=== PATIENT | female | born 1970 | race Caucasian/White ===

== ENCOUNTER 2017-06-17 10:39 | Inpatient (IN) | payer BC ==
[2017-06-17] MEDS ORDERED: ONDANSETRON HCL INJ/PF 4 MG/2 ML SDV IV ONE (11:03)
[2017-06-17] MEDS ORDERED: NORMAL SALINE 1000 ML 1,000 ML IV ONE (11:03)
[2017-06-17] MEDS ORDERED: HYDROMORPHONE HCL INJ/PF 2 MG/ML AMPULE IV ONE ×3 (11:03→13:58)
--- NOTE | 2017-06-17 11:04 | ER Document Report ---
ED Medical Screen (RME) - General Chief Complaint: Lower Abdominal Pain Stated Complaint: STOMACH PAIN Time Seen by Provider: 06/17/17 11:02 Notes: severe llq abd pain that started yesterday. has had complete hyster TRAVEL OUTSIDE OF THE [place] IN LAST 30 DAYS: No - Related Data Allergies/Adverse Reactions: No Known Allergies Allergy (Verified 06/17/17 11:00) Past Medical History - Social History Frequency of alcohol use: Occasional Drug Abuse: None - Past Medical History Cardiac Medical History: Reports: Hx Hypertension Pulmonary Medical History: Denies: Hx Tuberculosis Renal/ Medical History: Reports: Hx Ovarian Cysts. Denies: Hx Peritoneal Dialysis GI Medical History: Reports: Hx Diverticulitis Past Surgical History: Reports: Hx Hysterectomy, Hx Tonsillectomy. Denies: Hx Pacemaker Physical Exam - Vital signs Vitals: Temp Pulse Resp BP Pulse Ox 98.7 F 95 20 123/75 100 06/17/17 10:42 06/17/17 10:42 06/17/17 10:42 06/17/17 10:42 06/17/17 10:42 Course - Vital Signs Vital signs: Temp Pulse Resp BP Pulse Ox 98.7 F 95 20 123/75 100 06/17/17 10:42 06/17/17 10:42 06/17/17 10:42 06/17/17 10:42 06/17/17 10:42
[2017-06-17 11:26] LABS: ABSOLUTE BASOPHILS # (AUTO) 0.2 10^3/uL (0.0-0.2); ABSOLUTE LYMPHOCYTES (AUTO) 1.1 10^3/uL (0.5-4.7); ABSOLUTE NEUT (AUTO) 17.5 10^3/uL (1.7-8.2); EOSINOPHILS % (AUTO) 0.2 % (0-6); HEMATOCRIT 45.4 % (36.0-47.0); HEMOGLOBIN 15.2 g/dL (12.0-15.5); LYMPHOCYTES % (AUTO) 5.7 % (13-45); MEAN CORPUSCULAR HEMOGLOBIN 30.4 pg (27.0-33.4); MEAN CORPUSCULAR HGB CONC 33.4 g/dL (32.0-36.0); MEAN CORPUSCULAR VOLUME 91 fl (80-97); MONOCYTES % (AUTO) 4.8 % (3-13); PLATELET COUNT 293 10^3/uL (150-450); RED BLOOD COUNT 4.99 10^6/uL (3.72-5.28); SEGMENTED NEUTROPHILS % (AUTO) 88.3 % (42-78); TOTAL CELLS COUNTED % (AUTO) 100 %; WHITE BLOOD COUNT 19.9 10^3/uL (4.0-10.5)
[2017-06-17 11:42] LABS: APPEARANCE,URINE CLEAR; BILIRUBIN,URINE NEGATIVE (NEGATIVE); COLOR,URINE YELLOW; GLUCOSE, URINE NEGATIVE (NEGATIVE); KETONES,URINE NEGATIVE (NEGATIVE); LEUKOCYTE ESTERASE,URINE NEGATIVE (NEGATIVE); NITRITE,URINE NEGATIVE (NEGATIVE); PROTEIN,URINE NEGATIVE (NEGATIVE); URINE SPECIFIC GRAVITY 1.024; UROBILINOGEN,URINE NEGATIVE mg/dL (<2.0)
[2017-06-17 11:49] LABS: ALANINE AMINOTRANSFERASE 29 U/L (9-52); ALBUMIN 4.8 g/dL (3.5-5.0); ALKALINE PHOSPHATASE 55 U/L (38-126); ASPARTATE AMINO TRANSFERASE 17 U/L (14-36); BILIRUBIN,DIRECT 0.4 mg/dL (0.0-0.4); BILIRUBIN,TOTAL 1.2 mg/dL (0.2-1.3); BLOOD UREA NITROGEN 22 mg/dL (7-20); CALCIUM 9.8 mg/dL (8.4-10.2); GLUCOSE 92 mg/dL (75-110); POTASSIUM 3.3 mmol/L (3.6-5.0); TOTAL PROTEIN 8.2 g/dL (6.3-8.2)
--- NOTE | 2017-06-17 11:55 | ER Document Report ---
ED GI/ - General Chief Complaint: Lower Abdominal Pain Stated Complaint: STOMACH PAIN Time Seen by Provider: 06/17/17 11:02 Notes: Patient says that she is having severe lower abdominal pain this morning. She says that this began last night in the left upper quadrant, but this morning, it is going across her abdomen, although it staying primarily on the left abdomen and suprapubic region. She says that when driving her car this morning , it was severe and worse with attempting to breathe. She was nauseated but has not vomited. Had 2 diarrhea stools yesterday. No blood present. Has not had a fever. Patient has a history of endometriosis and had a hysterectomy for that condition. She has had 2 colonoscopies performed by 2 different retread technician and i been told by one retread technician that she has diverticulitis and by another retread technician that she does not have diverticulitis. She also has a history of a kidney infection and has seen a urologist and has discussed the finding of cysts and questionable stones. TRAVEL OUTSIDE OF THE [place] IN LAST 30 DAYS: No - Related Data Allergies/Adverse Reactions: No Known Allergies Allergy (Verified 06/17/17 11:00) Past Medical History - Social History Smoking Status: Never Smoker Frequency of alcohol use: Occasional Drug Abuse: None Family History: Reviewed & Not Pertinent Patient has suicidal ideation: No Patient has homicidal ideation: No - Past Medical History Cardiac Medical History: Reports: Hx Hypertension Renal/ Medical History: Reports: Hx Ovarian Cysts, Other - Endometriosis resulting in hysterectomy. GI Medical History: Reports: Hx Diverticulitis - See HPI. Psychiatric Medical History: Reports: Hx Anxiety Past Surgical History: Reports: Hx Hysterectomy, Hx Tonsillectomy Review of Systems - Review of Systems Notes: REVIEW OF SYSTEMS: CONSTITUTIONAL : Denies fever. EENT: Denies eye, ear, nose or mouth or throat pain or other symptoms. CARDIOVASCULAR: Denies chest pain. RESPIRATORY: Denies cough, chest congestion, or shortness of breath. GASTROINTESTINAL: See HPI. GENITOURINARY: Denies difficulty or painful urinating, urinary frequency, blood in urine. MUSCULOSKELETAL: Denies back or neck pain. Denies joint pain or swelling. SKIN: Denies rash or skin lesions. NEUROLOGICAL: Denies LOC or altered mental status. Denies headache. Denies sensory loss or motor deficits. ALL OTHER SYSTEMS REVIEWED AND NEGATIVE. Physical Exam - Vital signs Vitals: Temp Pulse Resp BP Pulse Ox 98.7 F 95 20 123/75 100 06/17/17 10:42 06/17/17 10:42 06/17/17 10:42 06/17/17 10:42 06/17/17 10:42 Interpretation: Normal - Notes Notes: PHYSICAL EXAMINATION: GENERAL: Well-appearing, in no acute distress. HEAD: Atraumatic, normocephalic. EYES: Pupils equal round and reactive to light, extraocular movements intact. ENT: oropharynx clear without exudates. Moist mucous membranes. NECK: Normal range of motion, supple. LUNGS: Breath sounds clear and equal bilaterally. HEART: Regular rate and rhythm without murmurs. ABDOMEN: Tender to palpation in the left upper quadrant and down the left side of her abdomen. Little tenderness to the right side of the abdomen, in particular at McBurney's point. Some mild guarding to palpation of the left abdomen. No rebound tenderness. No masses felt. No bruits heard. BACK: No tenderness throughout entire back. Mild left posterior flank pain to palpation and percussion. EXTREMITIES: Normal range of motion without pain. NEUROLOGICAL: Normal speech, normal gait. Normal sensory, motor, and reflex exams. Awake, alert, and oriented x3. Cranial nerves normal. PSYCH: Normal mood, normal affect. SKIN: Warm, dry, no rashes. Course - Re-evaluation Re-evalutation: 06/17/17 12:47 Patient's white count was 19,000. I have ordered a CT scan with oral and IV contrast. I have also ordered a gram of Rocephin IV to get antibiotics started on her without having to wait until she is done having her CT scan. She is drinking the contrast material. Patient has had some Zofran for nausea and I have given her another milligram of Dilaudid IV after she got 1/2 mg IV out front. She says her pain is much better now. 06/17/17 17:11 After seeing the patient's CT results, I called the surgeon cooler conveyor loader who examined the patient. He does not plan on doing surgery at this time. Asked that I contact the medicine service to admit the patient. That was accomplished. Patient has received a gram of Rocephin and 500 mg of Flagyl IV. - Vital Signs Vital signs: Temp Pulse Resp BP Pulse Ox 99.1 F 89 16 118/72 100 06/17/17 17:05 06/17/17 17:05 06/17/17 17:05 06/17/17 17:05 06/17/17 17:05 - Laboratory Result Diagrams: 06/17/17 11:13 06/17/17 11:13 Laboratory results interpreted by me: 06/17/17 06/17/17 11:13 11:13 WBC 19.9 H Seg Neutrophils % 88.3 H Lymphocytes % 5.7 L Absolute Neutrophils 17.5 H Potassium 3.3 L Anion Gap 21 H BUN 22 H Est GFR (Non-Af Amer) 59 L - Diagnostic Test Radiology reviewed: Image reviewed, Reports reviewed - CT scan shows sigmoid diverticulitis with small microperforations, no abscess. Discharge - Discharge Clinical Impression: Sigmoid diverticulitis, Perforation of sigmoid colon due to diverticulitis Condition: Stable Disposition: ADMITTED INPATIENT Admitting Provider: Hospitalist Unit Admitted: Medical Floor Referrals: ZACHERY MELVIN MD [Primary Care Provider] - Follow up as needed
[2017-06-17 11:59] LABS: CARBON DIOXIDE 23 mmol/L (22-30); CHLORIDE 99 mmol/L (98-107); SODIUM 142.6 mmol/L (137-145)
[2017-06-17 12:02] LABS: ANION GAP 21 (5-19)
[2017-06-17] MEDS ORDERED: CEFTRIAXONE INJ 1000 MG VIAL IV ONE (12:13)
--- NOTE | 2017-06-17 14:58 | RADIOLOGY REPORT (SQ) ---
EXAM DESCRIPTION: CT ABD/PELVIS WITH IV ORAL COMPLETED DATE/TIME: 06/17/2017 2:42 pm REASON FOR STUDY: Left abdom pain, WBC 19,000, Hx? Divertic COMPARISON: 05/13/2012 TECHNIQUE: CT scan of the abdomen and pelvis performed using helical scanning technique with dynamic intravenous contrast injection. No oral contrast. Images reviewed with lung, soft tissue, and bone windows. Reconstructed coronal and sagittal MPR images reviewed. Delayed images for evaluation of the urinary system also acquired. All images stored on PACS. All CT scanners at this facility use dose modulation, iterative reconstruction, and/or weight based d osing when appropriate to reduce radiation dose to as low as reasonably achievable (ALARA). [facility]: Dose Right [facility]: CareDose [facility]: Dose Right [facility]: Teradose 4D [facility]: Cute Attack CONTRAST TYPE AND DOSE: contrast/concentration: Isovue 370.00 mg/ml; Total Contrast Delivered: 64.0 ml; Total Saline Delivered: 65.0 ml RENAL FUNCTION: Creatinine 1 RADIATION DOSE: CT Rad equipment meets quality standard of care and radiation dose reduction techniq ues were employed. CTDIvol: 5.0 - 5.7 mGy. DLP: 543 mGy-cm.. LIMITATIONS: None. FINDINGS: LOWER CHEST: No significant findings. Minimal atelectasis or scarring. No nodules or inf iltrates. LIVER: Normal size. No masses. No dilated ducts. SPLEEN: Normal size. No focal lesions. PANCREAS: No masses. No significant calcifications. No adjacent inflammation or peripancreatic fluid collections. Pancreatic duct not dilated. GALLBLADDER: No identified stones by CT criteria. No inflammatory changes to suggest cholecystitis. ADRENAL GLANDS: No significant masses or asymmetry. RIGHT KIDNEY AND URETER: No solid masses. No significant calcifications. No hydronephrosis or hyd roureter. LEFT KIDNEY AND URETER: No solid masses. No significant calcifications. No hydronephrosis or hydr oureter. AORTA AND VESSELS: No aneurysm. No dissection. Renal arteries, SMA, celiac without stenosis. RETROPERITONEUM: No retroperitoneal adenopathy, hemorrhage or masses. BOWEL AND PERITONEAL CAVITY: Colonic diverticulum most prominently involving the sigmoid colon. In t he sigmoid colon there is a thick walled diverticulum with surrounding inflammatory change and bowel wall thickening consistent with diverticulitis. There is no evidence of abscess. There are small lo cules of free air seen superiorly consistent with perforation of a diverticulum. APPENDIX: Normal. PELVIS: No mass. No free fluid. Normal bladder. ABDOMINAL WALL: No masses. No hernias. BONES: No significant or acute findings. OTHER: No other significant finding. IMPRESSION: 1. Sigmoid diverticulitis. No abscess. Small amount of free air consistent with perfo ration. TECHNICAL DOCUMENTATION: JOB ID: [id number] Quality ID # [id number]: Final reports with documentation of one or more dose reduction techniques (e.g., Au tomated exposure control, adjustment of the mA and/or kV according to patient size, use of iterative reconstruction technique) 2010 [employer]- All Rights Reserved Reading location - IP/workstation name: [email or web address]
[2017-06-17] MEDS ORDERED: METRONIDAZOLE 500 MG/NS RTU 100 ML IV ONE (15:30)
[2017-06-17] MEDS ORDERED: ACETAMINOPHEN 325 MG TABLET PO PRN (17:20)
--- NOTE | 2017-06-17 17:40 | PDOC CONSULTATION ---
Consultation Consult Date: 06/17/17 Consult reason:: Sigmoid diverticulitis with localized perforation History of Present Illness Admission Date/PCP: 06/17/17 17:23 ZACHERY MELVIN MD Patient complains of: Abdominal pains History of Present Illness: RONNIE MOELLER is a 47 year old female who c/o LLQ abdominal pains around 7: 30 last night associated with 2 episodes of diarrhea. Woke up this morning with more severe LLQ and suprapubic pains with nausea. Patient then went to ED where a CT scan of abd/pelvis was done. This sowed a localized sigmoid diverticular perforation. Denies fever nor chills. Past Medical History Cardiac Medical History: Reports: Hypertension Pulmonary Medical History: Denies: Tuberculosis Renal/ Medical History: Reports: Other - Endometriosis resulting in hysterectomy. GI Medical History: Reports: Diverticulitis - See HPI. Past Surgical History Past Surgical History: Reports: Hysterectomy, Tonsillectomy Denies: Pacemaker Social History Smoking Status: Never Smoker Hx Recreational Drug Use: No Hx Prescription Drug Abuse: No Family History Family History: Reviewed & Not Pertinent Parental Family History Reviewed: Yes - Hypertension Children Family History Reviewed: No Sibling(s) Family History Reviewed.: No Medication/Allergy Home Medications: Hyoscyamine Sulfate [Symax-Sl] 0.125 mg SL ASDIR PRN 05/13/12 Ciprofloxacin HCl [Cipro 500 mg Tablet] 500 mg PO BID #20 tablet 05/14/12 Metronidazole [Flagyl 250 Mg Tablet] 250 mg PO QID #0 tablet 05/14/12 Promethazine HCl [Phenergan 25 mg Tablet] 25 mg PO Q4HP PRN #0 tablet 05/14/12 Allergies/Adverse Reactions: No Known Allergies Allergy (Verified 06/17/17 11:00) Review of Systems Constitutional: PRESENT: anorexia Eyes: PRESENT: other - no visual/hearing problems Cardiovascular: PRESENT: other - no chest pains Respiratory: PRESENT: other - no dyspnea Gastrointestinal: PRESENT: diarrhea Genitourinary: PRESENT: other - no dysuria Musculoskeletal: PRESENT: other - no joint pains/skin lesions Neurological: PRESENT: other - no seizures Endocrine: PRESENT: other - no polyuria or easy bruisability Physical Exam Vital Signs: Temp Pulse Resp BP Pulse Ox 99.1 F 89 16 118/72 100 06/17/17 17:05 06/17/17 17:05 06/17/17 17:05 06/17/17 17:05 06/17/17 17:05 General appearance: PRESENT: mild distress Head exam: PRESENT: atraumatic, normocephalic Eye exam: PRESENT: conjunctiva pink Mouth exam: PRESENT: moist Neck exam: PRESENT: full ROM Respiratory exam: PRESENT: clear to auscultation cherelle Cardiovascular exam: PRESENT: RRR Pulses: PRESENT: normal radial pulses GI/Abdominal exam: PRESENT: soft, tenderness - LLQ and suprapubic area Rectal exam: PRESENT: deferred Extremities exam: PRESENT: full ROM Musculoskeletal exam: PRESENT: ambulatory Neurological exam: PRESENT: alert, oriented to person, oriented to place, oriented to time, oriented to situation Psychiatric exam: PRESENT: appropriate affect Skin exam: PRESENT: normal color, warm Results Impressions: Abdomen/Pelvis CT 06/17/17 00:00 IMPRESSION: 1. Sigmoid diverticulitis. No abscess. Small amount of free air consistent with perforation. Assessment & Plan - Diagnosis (1) Perforation of sigmoid colon due to diverticulitis Is this a current diagnosis for this admission?: Yes - Time Time Spent: 30 to 50 Minutes - Inpatient Certification Medical Necessity: Need For IV Fluids, Need for Pain Control, Need for IV Antibiotics, Risk of Complication if Not Cared For in Hospital - Plan Summary Plan Summary: Keep NPO IV antibiotics Hydrate Pain mx Will monitor closely
[2017-06-17] MEDS: OXYCODONE-ACETAMINOPHEN 5-325 MG TABLET PO PRN (18:24)
--- NOTE | 2017-06-17 18:32 | PDOC H&P ---
History of Present Illness Admission Date/PCP: 06/17/17 17:23 ZACHERY MELVIN MD Patient complains of: Abdominal Pain History of Present Illness: RONNIE MOELLER is a 47 year old female Past Medical History Cardiac Medical History: Reports: Hypertension Pulmonary Medical History: Denies: Tuberculosis Endocrine Medical History: Reports: None Renal/ Medical History: Reports: Other - Endometriosis resulting in hysterectomy. GI Medical History: Reports: Diverticulitis - See HPI. Skin Medical History: Reports: None Psychiatric Medical History: Reports: None Hematology: Reports: None Infectious Medical History: Reports: None Past Surgical History Past Surgical History: Reports: Hysterectomy, Tonsillectomy Denies: Pacemaker Social History Information Source: Patient Smoking Status: Never Smoker Frequency of Alcohol Use: None Hx Recreational Drug Use: No Drugs: None Hx Prescription Drug Abuse: No Family History Family History: Reviewed & Not Pertinent Parental Family History Reviewed: Yes Children Family History Reviewed: Unknown Sibling(s) Family History Reviewed.: Unknown Medication/Allergy Home Medications: Hyoscyamine Sulfate [Symax-Sl] 0.125 mg SL ASDIR PRN 05/13/12 Ciprofloxacin HCl [Cipro 500 mg Tablet] 500 mg PO BID #20 tablet 05/14/12 Metronidazole [Flagyl 250 Mg Tablet] 250 mg PO QID #0 tablet 05/14/12 Promethazine HCl [Phenergan 25 mg Tablet] 25 mg PO Q4HP PRN #0 tablet 05/14/12 Allergies/Adverse Reactions: No Known Allergies Allergy (Verified 06/17/17 11:00) Review of Systems Constitutional: PRESENT: as per HPI Eyes: PRESENT: as per HPI Cardiovascular: ABSENT: chest pain, dyspnea on exertion, edema, orthropnea Respiratory: ABSENT: cough, hemoptysis Gastrointestinal: PRESENT: abdominal pain, nausea, other Genitourinary: ABSENT: dysuria, hematuria Musculoskeletal: PRESENT: as per HPI Integumentary: ABSENT: rash, wounds Neurological: ABSENT: abnormal gait, abnormal speech, confusion, dizziness, focal weakness, syncope Psychiatric: ABSENT: anxiety, depression, homidical ideation, suicidal ideation Endocrine: ABSENT: cold intolerance, heat intolerance, polydipsia, polyuria Physical Exam Vital Signs: Temp Pulse Resp BP Pulse Ox 99.1 F 89 16 118/72 100 06/17/17 17:05 06/17/17 17:05 06/17/17 17:05 06/17/17 17:05 06/17/17 17:05 General appearance: PRESENT: no acute distress Head exam: PRESENT: atraumatic Eye exam: PRESENT: conjunctiva pink, EOMI, PERRLA. ABSENT: scleral icterus Ear exam: PRESENT: normal external ear exam Mouth exam: PRESENT: dry mucosa, moist, tongue midline Neck exam: ABSENT: carotid bruit, JVD, lymphadenopathy, thyromegaly Respiratory exam: PRESENT: clear to auscultation cherelle. ABSENT: rales, rhonchi, wheezes Cardiovascular exam: PRESENT: RRR. ABSENT: diastolic murmur, rubs, systolic murmur Pulses: PRESENT: normal dorsalis pedis pul GI/Abdominal exam: PRESENT: diminished bowel sounds, tenderness Rectal exam: PRESENT: deferred Extremities exam: PRESENT: full ROM. ABSENT: calf tenderness, clubbing, pedal edema Musculoskeletal exam: PRESENT: ambulatory Neurological exam: PRESENT: alert, awake, oriented to person, oriented to place , oriented to time, oriented to situation Psychiatric exam: PRESENT: appropriate affect, normal mood. ABSENT: homicidal ideation, suicidal ideation Skin exam: PRESENT: dry, intact, warm. ABSENT: cyanosis, rash Results Laboratory Results: Laboratory 06/17/17 06/17/17 06/17/17 11:10 11:13 11:13 WBC 19.9 H RBC 4.99 Hgb 15.2 Hct 45.4 MCV 91 MCH 30.4 MCHC 33.4 RDW 14.0 Plt Count 293 Seg Neutrophils % 88.3 H Lymphocytes % 5.7 L Monocytes % 4.8 Eosinophils % 0.2 Basophils % 1.0 Absolute Neutrophils 17.5 H Absolute Lymphocytes 1.1 Absolute Monocytes 1.0 Absolute Eosinophils 0.0 Absolute Basophils 0.2 Sodium 142.6 Potassium 3.3 L Chloride 99 Carbon Dioxide 23 Anion Gap 21 H BUN 22 H Creatinine 1.00 Est GFR ( Amer) > 60 Est GFR (Non-Af Amer) 59 L Glucose 92 Calcium 9.8 Total Bilirubin 1.2 Direct Bilirubin 0.4 Neonat Total Bilirubin Not Reportable Neonat Direct Bilirubin Not Reportable Neonat Indirect Bili Not Reportable AST 17 ALT 29 Alkaline Phosphatase 55 Total Protein 8.2 Albumin 4.8 Lipase Urine Color YELLOW Urine Appearance CLEAR Urine pH 5.0 Ur Specific [place] 1.024 Urine Protein NEGATIVE Urine Glucose (UA) NEGATIVE Urine Ketones NEGATIVE Urine Blood NEGATIVE Urine Nitrite NEGATIVE Urine Bilirubin NEGATIVE Urine Urobilinogen NEGATIVE Ur Leukocyte Esterase NEGATIVE Urine WBC (Auto) 2 U Hyaline Cast (Auto) 1 Squamous Epi Cells Auto 1 Urine Mucus (Auto) OCC Urine Ascorbic Acid NEGATIVE 06/17/17 11:13 WBC RBC Hgb Hct MCV MCH MCHC RDW Plt Count Seg Neutrophils % Lymphocytes % Monocytes % Eosinophils % Basophils % Absolute Neutrophils Absolute Lymphocytes Absolute Monocytes Absolute Eosinophils Absolute Basophils Sodium Potassium Chloride Carbon Dioxide Anion Gap BUN Creatinine Est GFR ( Amer) Est GFR (Non-Af Amer) Glucose Calcium Total Bilirubin Direct Bilirubin Neonat Total Bilirubin Neonat Direct Bilirubin Neonat Indirect Bili AST ALT Alkaline Phosphatase Total Protein Albumin Lipase 98.9 Urine Color Urine Appearance Urine pH Ur Specific [place] Urine Protein Urine Glucose (UA) Urine Ketones Urine Blood Urine Nitrite Urine Bilirubin Urine Urobilinogen Ur Leukocyte Esterase Urine WBC (Auto) U Hyaline Cast (Auto) Squamous Epi Cells Auto Urine Mucus (Auto) Urine Ascorbic Acid Impressions: Abdomen/Pelvis CT 06/17/17 00:00 IMPRESSION: 1. Sigmoid diverticulitis. No abscess. Small amount of free air consistent with perforation. Assessment & Plan - Diagnosis (1) Perforation of sigmoid colon due to diverticulitis Is this a current diagnosis for this admission?: Yes Plan: NPO, Evaluation by surgery and close monitor (2) Sigmoid diverticulitis Is this a current diagnosis for this admission?: Yes Plan: Tato Toussaint IV - Time Time Spent: 30 to 50 Minutes Critical Time spent with patient: Less than 15 minutes Medications reviewed and adjusted accordingly: Yes Anticipated discharge: Home Within: within 72 hours - Inpatient Certification Based on my medical assessment, after consideration of the patient's comorbidities, presenting symptoms, or acuity I expect that the services needed warrant INPATIENT care.: Yes I certify that my determination is in accordance with my understanding of Medicare's requirements for reasonable and necessary INPATIENT services [42 CFR 412.3e].: Yes Medical Necessity: Failure to Improve With Outpatient Therapy, Need for IV Antibiotics, Risk of Complication if Not Cared For in Hospital - Extension of perforation
[2017-06-17] MEDS: FENTANYL CITRATE INJ/PF 100 MCG/2 ML AMPUL IV PRN (20:21)
[2017-06-17] MEDS: NORMAL SALINE 1000 ML 1,000 ML IV PRN (20:24)
[2017-06-17] MEDS: FAMOTIDINE INJ/PF 20 MG/2 ML SDV IV SCH (21:44)
[2017-06-17] MEDS: CIPROFLOXACIN 400 MG/D5W RTU 400 MG/200 ML RTUPB IV SCH (21:45)
[2017-06-17] MEDS: TEMAZEPAM 15 MG CAPSULE PO PRN (21:49)
[2017-06-17] MEDS: METRONIDAZOLE 500 MG/NS RTU 100 ML IV SCH (23:05)
[2017-06-18] MEDS: FENTANYL CITRATE INJ/PF 100 MCG/2 ML AMPUL IV PRN (00:42)
[2017-06-18] MEDS: OXYCODONE-ACETAMINOPHEN 5-325 MG TABLET PO PRN ×4 (02:10→19:52)
[2017-06-18] MEDS: NORMAL SALINE 1000 ML 1,000 ML IV PRN (06:00)
[2017-06-18] MEDS: METRONIDAZOLE 500 MG/NS RTU 100 ML IV SCH ×3 (06:38→18:07)
[2017-06-18 07:38] LABS: ABSOLUTE EOSINOPHILS # (AUTO) 0.1 10^3/uL (0.0-0.6); ABSOLUTE LYMPHOCYTES (AUTO) 1.2 10^3/uL (0.5-4.7); ABSOLUTE MONOCYTES (AUTO) 0.7 10^3/uL (0.1-1.4); ABSOLUTE NEUT (AUTO) 10.6 10^3/uL (1.7-8.2); BASOPHILS % (AUTO) 0.2 % (0-2); EOSINOPHILS % (AUTO) 0.7 % (0-6); HEMATOCRIT 37.8 % (36.0-47.0); LYMPHOCYTES % (AUTO) 9.2 % (13-45); MEAN CORPUSCULAR HEMOGLOBIN 30.3 pg (27.0-33.4); MEAN CORPUSCULAR HGB CONC 33.5 g/dL (32.0-36.0); MEAN CORPUSCULAR VOLUME 90 fl (80-97); MONOCYTES % (AUTO) 5.3 % (3-13); PLATELET COUNT 209 10^3/uL (150-450); RED BLOOD COUNT 4.18 10^6/uL (3.72-5.28); SEGMENTED NEUTROPHILS % (AUTO) 84.6 % (42-78); TOTAL CELLS COUNTED % (AUTO) 100 %; WHITE BLOOD COUNT 12.5 10^3/uL (4.0-10.5)
[2017-06-18 07:42] LABS: HEMOGLOBIN 12.6 g/dL (12.0-15.5)
[2017-06-18 07:54] LABS: ANION GAP 10 (5-19); BLOOD UREA NITROGEN 11 mg/dL (7-20); CALCIUM 8.1 mg/dL (8.4-10.2); CARBON DIOXIDE 21 mmol/L (22-30); CHLORIDE 108 mmol/L (98-107); GLUCOSE 70 mg/dL (75-110); POTASSIUM 3.1 mmol/L (3.6-5.0); SODIUM 139.2 mmol/L (137-145)
--- NOTE | 2017-06-18 09:04 | RADIOLOGY REPORT (SQ) ---
EXAM DESCRIPTION: KUB/ABDOMEN (SINGLE VIEW) COMPLETED DATE/TIME: 06/18/2017 8:49 am REASON FOR STUDY: abd. pain COMPARISON: CT abdomen pelvis 06/17/2017 NUMBER OF VIEWS: One view. TECHNIQUE: Supine radiographic image of the abdomen acquired. LIMITATIONS: None. FINDINGS: BOWEL GAS PATTERN: Oral contrast given for CT exam 06/17/2017 is seen in the colon in a non obstructive pattern. No small bowel air-fluid levels worrisome for obstruction. Stomach decompresse d. CALCIFICATIONS: Calcified left pelvic phlebolith. SOFT TISSUES: No gross mass or suggestion of organomegaly. HARDWARE: None in the abdomen. BONES: No acute fracture. No worrisome bone lesions. OTHER: No other significant finding. IMPRESSION: Nonobstructive bowel gas pattern TECHNICAL DOCUMENTATION: JOB ID: [id number] [employer]- All Rights Reserved Reading location - IP/workstation name: [email or web address]
[2017-06-18] MEDS: CIPROFLOXACIN 400 MG/D5W RTU 400 MG/200 ML RTUPB IV SCH ×2 (10:09→22:18)
[2017-06-18] MEDS: FAMOTIDINE INJ/PF 20 MG/2 ML SDV IV SCH ×2 (10:09→22:18)
[2017-06-18] MEDS: ENOXAPARIN SODIUM INJ 40 MG/0.4 ML DISP.SYRIN SUBCUT SCH (10:10)
--- NOTE | 2017-06-18 12:04 | PDOC PROGRESS REPORT ---
Subjective Progress Note for:: 06/18/17 Subjective:: Patient admitted with abdominal pain as well as nausea. She does feel better today with less pain. She states that she is hungry Reason For Visit: SIGMOID DIVERTICULITIS Physical Exam Vital Signs: Temp Pulse Resp BP Pulse Ox 99.1 F 84 22 H 116/61 99 06/18/17 08:01 06/18/17 08:01 06/18/17 08:01 06/18/17 08:01 06/18/17 08:01 Intake & Output 06/17/17 06/18/17 06/19/17 06:59 06:59 06:59 Intake Total 3 Balance 3 Weight 60.7 kg General appearance: PRESENT: no acute distress, cooperative, other - . Healthy looking Head exam: PRESENT: atraumatic Eye exam: PRESENT: conjunctiva pink, EOMI, PERRLA. ABSENT: scleral icterus Ear exam: PRESENT: normal external ear exam Neck exam: ABSENT: carotid bruit, JVD, lymphadenopathy, thyromegaly Respiratory exam: PRESENT: unlabored. ABSENT: accessory muscle use, chest wall tenderness, rales, retraction, tachypnea, wheezes Cardiovascular exam: PRESENT: RRR. ABSENT: diastolic murmur, rubs, systolic murmur GI/Abdominal exam: PRESENT: soft, tenderness Rectal exam: PRESENT: deferred Extremities exam: PRESENT: full ROM. ABSENT: calf tenderness, clubbing, pedal edema Neurological exam: PRESENT: alert, awake, oriented to person, oriented to place , oriented to time, oriented to situation, CN II-XII grossly intact. ABSENT: motor sensory deficit Skin exam: PRESENT: dry, intact, warm. ABSENT: cyanosis, rash Results Laboratory Results: 06/18/17 06:52 06/18/17 06:52 06/18/17 06/18/17 06:52 06:52 WBC 12.5 H RBC 4.18 Hgb 12.6 D Hct 37.8 MCV 90 MCH 30.3 MCHC 33.5 RDW 14.0 Plt Count 209 Seg Neutrophils % 84.6 H Lymphocytes % 9.2 L Monocytes % 5.3 Eosinophils % 0.7 Basophils % 0.2 Absolute Neutrophils 10.6 H Absolute Lymphocytes 1.2 Absolute Monocytes 0.7 Absolute Eosinophils 0.1 Absolute Basophils 0.0 Sodium 139.2 Potassium 3.1 L Chloride 108 H Carbon Dioxide 21 L Anion Gap 10 BUN 11 Creatinine 0.80 Est GFR ( Amer) > 60 Est GFR (Non-Af Amer) > 60 Glucose 70 L Calcium 8.1 L Impressions: Abdomen/Pelvis CT 06/17/17 00:00 IMPRESSION: 1. Sigmoid diverticulitis. No abscess. Small amount of free air consistent with perforation. KUB X-Ray 06/18/17 00:00 IMPRESSION: Nonobstructive bowel gas pattern Assessment & Plan - Diagnosis (1) Sigmoid diverticulitis Is this a current diagnosis for this admission?: Yes Plan: Cont Flagyl, Cipro IV and transition to oral abx as appropriate (2) Perforation of sigmoid colon due to diverticulitis Is this a current diagnosis for this admission?: Yes Plan: Improved. Will continue conservative management (3) Hypokalemia Is this a current diagnosis for this admission?: Yes Plan: Likely from HCTZ which patient uses as outpatient. Will replace - Time Time Spent with patient: 15-24 minutes Medications reviewed and adjusted accordingly: Yes Anticipated discharge: Home Within: within 48 hours - Inpatient Certification Medical Necessity: Need for IV Antibiotics
[2017-06-18] MEDS: ONDANSETRON HCL INJ/PF 4 MG/2 ML SDV IV PRN ×2 (12:07→19:53)
[2017-06-18] MEDS: POTASSI CL 20 MEQ/50 ML RIDER 20 MEQ/50 ML RTUPB IV SCH ×2 (13:04→15:04)
--- NOTE | 2017-06-18 21:05 | PDOC PROGRESS REPORT ---
Subjective Progress Note for:: 06/18/17 Subjective:: LLQ pains Reason For Visit: SIGMOID DIVERTICULITIS Physical Exam Vital Signs: Temp Pulse Resp BP Pulse Ox 98.7 F 76 12 127/70 H 100 06/18/17 19:41 06/18/17 19:41 06/18/17 19:41 06/18/17 19:41 06/18/17 19:41 Intake & Output 06/17/17 06/18/17 06/19/17 06:59 06:59 06:59 Intake Total 3 Balance 3 Weight 60.7 kg Exam: Abd is soft with tenderness LLQ and suprapubic areas but patient feels better than yesterday Results Laboratory Results: 06/18/17 06:52 06/18/17 06:52 06/18/17 06/18/17 06:52 06:52 WBC 12.5 H RBC 4.18 Hgb 12.6 D Hct 37.8 MCV 90 MCH 30.3 MCHC 33.5 RDW 14.0 Plt Count 209 Seg Neutrophils % 84.6 H Lymphocytes % 9.2 L Monocytes % 5.3 Eosinophils % 0.7 Basophils % 0.2 Absolute Neutrophils 10.6 H Absolute Lymphocytes 1.2 Absolute Monocytes 0.7 Absolute Eosinophils 0.1 Absolute Basophils 0.0 Sodium 139.2 Potassium 3.1 L Chloride 108 H Carbon Dioxide 21 L Anion Gap 10 BUN 11 Creatinine 0.80 Est GFR ( Amer) > 60 Est GFR (Non-Af Amer) > 60 Glucose 70 L Calcium 8.1 L Impressions: Abdomen/Pelvis CT 06/17/17 00:00 IMPRESSION: 1. Sigmoid diverticulitis. No abscess. Small amount of free air consistent with perforation. KUB X-Ray 06/18/17 00:00 IMPRESSION: Nonobstructive bowel gas pattern Assessment & Plan - Diagnosis (1) Perforation of sigmoid colon due to diverticulitis Is this a current diagnosis for this admission?: Yes - Time Time Spent with patient: 15-24 minutes - Inpatient Certification Medical Necessity: Need For IV Fluids, Need for IV Antibiotics - Plan Summary Plan Summary: Continue IV antibiotics and hydration Keep NPO Re-evaluate in a.m.
[2017-06-18] MEDS: TEMAZEPAM 15 MG CAPSULE PO PRN (22:28)
[2017-06-19] MEDS: METRONIDAZOLE 500 MG/NS RTU 100 ML IV SCH ×5 (00:15→23:45)
[2017-06-19] MEDS: OXYCODONE-ACETAMINOPHEN 5-325 MG TABLET PO PRN ×3 (04:02→14:48)
[2017-06-19 04:04] LABS: ABSOLUTE EOSINOPHILS # (AUTO) 0.1 10^3/uL (0.0-0.6); ABSOLUTE LYMPHOCYTES (AUTO) 0.9 10^3/uL (0.5-4.7); ABSOLUTE MONOCYTES (AUTO) 0.8 10^3/uL (0.1-1.4); ABSOLUTE NEUT (AUTO) 7.6 10^3/uL (1.7-8.2); BASOPHILS % (AUTO) 0.2 % (0-2); EOSINOPHILS % (AUTO) 1.4 % (0-6); HEMATOCRIT 35.5 % (36.0-47.0); HEMOGLOBIN 11.7 g/dL (12.0-15.5); LYMPHOCYTES % (AUTO) 9.7 % (13-45); MEAN CORPUSCULAR HEMOGLOBIN 30.5 pg (27.0-33.4); MEAN CORPUSCULAR HGB CONC 33.1 g/dL (32.0-36.0); MEAN CORPUSCULAR VOLUME 92 fl (80-97); PLATELET COUNT 184 10^3/uL (150-450); RED BLOOD COUNT 3.85 10^6/uL (3.72-5.28); SEGMENTED NEUTROPHILS % (AUTO) 80.7 % (42-78); TOTAL CELLS COUNTED % (AUTO) 100 %; WHITE BLOOD COUNT 9.5 10^3/uL (4.0-10.5)
[2017-06-19 04:20] LABS: ANION GAP 8 (5-19); BLOOD UREA NITROGEN 9 mg/dL (7-20); CALCIUM 7.8 mg/dL (8.4-10.2); CARBON DIOXIDE 19 mmol/L (22-30); CHLORIDE 112 mmol/L (98-107); GLUCOSE 74 mg/dL (75-110); POTASSIUM 3.3 mmol/L (3.6-5.0); SODIUM 138.6 mmol/L (137-145)
[2017-06-19] MEDS: NORMAL SALINE 1000 ML 1,000 ML IV PRN (05:30)
[2017-06-19] MEDS ORDERED: POTASSIUM CHLORIDE 10 MEQ TABLET.SA PO ONE (07:29)
[2017-06-19] MEDS: ONDANSETRON HCL INJ/PF 4 MG/2 ML SDV IV PRN ×3 (08:29→21:09)
[2017-06-19] MEDS ORDERED: OXYCODONE-ACETAMINOPHEN 5-325 MG TABLET ONE (08:36)
--- NOTE | 2017-06-19 10:06 | PDOC PROGRESS REPORT ---
Subjective Progress Note for:: 06/19/17 Subjective:: Patient admitted with abdominal pain as well as nausea. She feels she is improving with less abdominal pain. She states that she is hungry Reason For Visit: SIGMOID DIVERTICULITIS Physical Exam Vital Signs: Temp Pulse Resp BP Pulse Ox 98.3 F 83 16 125/72 100 06/19/17 08:01 06/19/17 08:01 06/19/17 08:01 06/19/17 08:01 06/19/17 08:01 Intake & Output 06/18/17 06/19/17 06/20/17 06:59 06:59 06:59 Intake Total 3 Balance 3 Weight 60.7 kg General appearance: PRESENT: no acute distress Head exam: PRESENT: atraumatic Eye exam: PRESENT: conjunctiva pink, EOMI, PERRLA. ABSENT: scleral icterus Ear exam: PRESENT: normal external ear exam Neck exam: ABSENT: carotid bruit, JVD, lymphadenopathy, thyromegaly Respiratory exam: ABSENT: chest wall tenderness, rales, retraction, rhonchi, stridor, wheezes Cardiovascular exam: PRESENT: RRR. ABSENT: diastolic murmur, rubs, systolic murmur Pulses: PRESENT: normal dorsalis pedis pul Vascular exam: PRESENT: normal capillary refill GI/Abdominal exam: PRESENT: hyperactive bowel sounds - LLQ improved, normal bowel sounds, soft, tenderness. ABSENT: distended, guarding, mass, organolmegaly, rebound Rectal exam: PRESENT: deferred Extremities exam: PRESENT: full ROM. ABSENT: calf tenderness, clubbing, pedal edema Neurological exam: PRESENT: alert, awake, oriented to person, oriented to place , oriented to time, oriented to situation, CN II-XII grossly intact. ABSENT: motor sensory deficit Psychiatric exam: PRESENT: appropriate affect, normal mood. ABSENT: homicidal ideation, suicidal ideation Results Laboratory Results: 06/19/17 03:50 06/19/17 03:50 06/19/17 06/19/17 03:50 03:50 WBC 9.5 RBC 3.85 Hgb 11.7 L Hct 35.5 L MCV 92 MCH 30.5 MCHC 33.1 RDW 14.0 Plt Count 184 Seg Neutrophils % 80.7 H Lymphocytes % 9.7 L Monocytes % 8.0 Eosinophils % 1.4 Basophils % 0.2 Absolute Neutrophils 7.6 Absolute Lymphocytes 0.9 Absolute Monocytes 0.8 Absolute Eosinophils 0.1 Absolute Basophils 0.0 Sodium 138.6 Potassium 3.3 L Chloride 112 H Carbon Dioxide 19 L Anion Gap 8 BUN 9 Creatinine 0.71 Est GFR ( Amer) > 60 Est GFR (Non-Af Amer) > 60 Glucose 74 L Calcium 7.8 L Magnesium 1.9 Impressions: Abdomen/Pelvis CT 06/17/17 00:00 IMPRESSION: 1. Sigmoid diverticulitis. No abscess. Small amount of free air consistent with perforation. KUB X-Ray 06/18/17 00:00 IMPRESSION: Nonobstructive bowel gas pattern Assessment & Plan - Diagnosis (1) Sigmoid diverticulitis Is this a current diagnosis for this admission?: Yes Plan: Cont Flagyl, Cipro IV and transition to oral abx once stable (2) Perforation of sigmoid colon due to diverticulitis Is this a current diagnosis for this admission?: Yes Plan: Improved. Will continue conservative management Advance diet as per Surgicalist (3) Hypokalemia Is this a current diagnosis for this admission?: Yes Plan: Likely from HCTZ which patient uses as outpatient. Cont to replace - Time Time Spent with patient: 15-24 minutes Medications reviewed and adjusted accordingly: Yes Anticipated discharge: Home Within: within 72 hours - Inpatient Certification Medical Necessity: Need Close Monitoring Due to Risk of Patient Decompensation, Need for IV Antibiotics
[2017-06-19] MEDS: FAMOTIDINE INJ/PF 20 MG/2 ML SDV IV SCH ×2 (10:09→21:09)
[2017-06-19] MEDS: ENOXAPARIN SODIUM INJ 40 MG/0.4 ML DISP.SYRIN SUBCUT SCH (10:09)
[2017-06-19] MEDS: CIPROFLOXACIN 400 MG/D5W RTU 400 MG/200 ML RTUPB IV SCH ×2 (10:09→21:09)
--- NOTE | 2017-06-19 12:35 | PDOC PROGRESS REPORT ---
Subjective Progress Note for:: 06/19/17 Subjective:: less LLQ pains Reason For Visit: SIGMOID DIVERTICULITIS Physical Exam Vital Signs: Temp Pulse Resp BP Pulse Ox 98.3 F 83 16 125/72 100 06/19/17 08:01 06/19/17 08:01 06/19/17 08:01 06/19/17 08:01 06/19/17 08:01 Intake & Output 06/18/17 06/19/17 06/20/17 06:59 06:59 06:59 Intake Total 3 Balance 3 Weight 60.7 kg Exam: less tender LLQ.+ flatus Results Laboratory Results: 06/19/17 03:50 06/19/17 03:50 06/19/17 06/19/17 03:50 03:50 WBC 9.5 RBC 3.85 Hgb 11.7 L Hct 35.5 L MCV 92 MCH 30.5 MCHC 33.1 RDW 14.0 Plt Count 184 Seg Neutrophils % 80.7 H Lymphocytes % 9.7 L Monocytes % 8.0 Eosinophils % 1.4 Basophils % 0.2 Absolute Neutrophils 7.6 Absolute Lymphocytes 0.9 Absolute Monocytes 0.8 Absolute Eosinophils 0.1 Absolute Basophils 0.0 Sodium 138.6 Potassium 3.3 L Chloride 112 H Carbon Dioxide 19 L Anion Gap 8 BUN 9 Creatinine 0.71 Est GFR ( Amer) > 60 Est GFR (Non-Af Amer) > 60 Glucose 74 L Calcium 7.8 L Magnesium 1.9 Impressions: Abdomen/Pelvis CT 06/17/17 00:00 IMPRESSION: 1. Sigmoid diverticulitis. No abscess. Small amount of free air consistent with perforation. KUB X-Ray 06/18/17 00:00 IMPRESSION: Nonobstructive bowel gas pattern Assessment & Plan - Diagnosis (1) Perforation of sigmoid colon due to diverticulitis Is this a current diagnosis for this admission?: Yes - Time Time Spent with patient: 15-24 minutes - Plan Summary Plan Summary: start clears continue IV antibiotics
[2017-06-19] MEDS: PROMETHAZINE HCL INJ 25 MG/1 ML VIAL IV PRN (23:42)
[2017-06-20] MEDS: OXYCODONE-ACETAMINOPHEN 5-325 MG TABLET PO PRN ×3 (02:34→18:32)
[2017-06-20] MEDS: METRONIDAZOLE 500 MG/NS RTU 100 ML IV SCH ×3 (05:03→18:21)
[2017-06-20 06:45] LABS: ABSOLUTE EOSINOPHILS # (AUTO) 0.1 10^3/uL (0.0-0.6); ABSOLUTE LYMPHOCYTES (AUTO) 1.1 10^3/uL (0.5-4.7); ABSOLUTE MONOCYTES (AUTO) 0.5 10^3/uL (0.1-1.4); ABSOLUTE NEUT (AUTO) 3.4 10^3/uL (1.7-8.2); BASOPHILS % (AUTO) 0.5 % (0-2); EOSINOPHILS % (AUTO) 1.8 % (0-6); HEMATOCRIT 32.2 % (36.0-47.0); HEMOGLOBIN 10.9 g/dL (12.0-15.5); LYMPHOCYTES % (AUTO) 21.3 % (13-45); MEAN CORPUSCULAR HEMOGLOBIN 30.7 pg (27.0-33.4); MEAN CORPUSCULAR HGB CONC 33.7 g/dL (32.0-36.0); MEAN CORPUSCULAR VOLUME 91 fl (80-97); MONOCYTES % (AUTO) 10.3 % (3-13); PLATELET COUNT 185 10^3/uL (150-450); RED BLOOD COUNT 3.54 10^6/uL (3.72-5.28); RED CELL DISTRIBUTION WIDTH 13.5 % (11.5-14.0); SEGMENTED NEUTROPHILS % (AUTO) 66.1 % (42-78); TOTAL CELLS COUNTED % (AUTO) 100 %; WHITE BLOOD COUNT 5.1 10^3/uL (4.0-10.5)
[2017-06-20 06:55] LABS: ANION GAP 10 (5-19); BLOOD UREA NITROGEN 7 mg/dL (7-20); CALCIUM 8.4 mg/dL (8.4-10.2); CARBON DIOXIDE 20 mmol/L (22-30); CHLORIDE 112 mmol/L (98-107); GLUCOSE 98 mg/dL (75-110); POTASSIUM 3.5 mmol/L (3.6-5.0); SODIUM 141.9 mmol/L (137-145)
[2017-06-20] MEDS: PROMETHAZINE HCL INJ 25 MG/1 ML VIAL IV PRN ×2 (07:48→22:37)
[2017-06-20] MEDS ORDERED: POTASSIUM CHLORIDE 10 MEQ TABLET.SA PO ONE (08:00)
[2017-06-20] MEDS: FAMOTIDINE INJ/PF 20 MG/2 ML SDV IV SCH ×2 (09:07→21:25)
[2017-06-20] MEDS: ENOXAPARIN SODIUM INJ 40 MG/0.4 ML DISP.SYRIN SUBCUT SCH (09:07)
[2017-06-20] MEDS: CIPROFLOXACIN 400 MG/D5W RTU 400 MG/200 ML RTUPB IV SCH ×2 (09:10→21:25)
[2017-06-20] MEDS ORDERED: GLUCAGON,HUMAN RECOMB 1 MG INJ SUBCUT PRN (11:08)
[2017-06-20] MEDS ORDERED: DEXTROSE 50%-WATER 25 GM/50 ML DISP.SYRIN IV PRN ×2 (11:08)
[2017-06-20] MEDS ORDERED: DEXTROSE 40% GEL 15 GM TUBE PO PRN ×2 (11:08)
--- NOTE | 2017-06-20 11:08 | PDOC PROGRESS REPORT ---
Subjective Progress Note for:: 06/20/17 Subjective:: Abdominal pain is markedly improved however patient still has been intolerant of p.o. intake. She is having diarrhea. No bilious emesis but vomiting just the stuff that she drinks. Reason For Visit: SIGMOID DIVERTICULITIS Physical Exam Vital Signs: Temp Pulse Resp BP Pulse Ox 98.5 F 61 15 131/77 H 99 06/20/17 08:15 06/20/17 08:15 06/20/17 08:15 06/20/17 08:15 06/20/17 08:15 Intake & Output 06/19/17 06/20/17 06/21/17 06:59 06:59 06:59 Intake Total 820 Output Total 150 Balance 670 Weight 63.1 kg General appearance: PRESENT: no acute distress, cooperative Respiratory exam: PRESENT: clear to auscultation cherelle Cardiovascular exam: PRESENT: RRR GI/Abdominal exam: PRESENT: other - Soft, nondistended, mild tenderness in the left lower quadrant without peritoneal signs. Extremities exam: PRESENT: other - No swelling and no tenderness. Results Laboratory Results: 06/20/17 06:28 06/20/17 06:28 06/20/17 06/20/17 06:28 06:28 WBC 5.1 RBC 3.54 L Hgb 10.9 L Hct 32.2 L MCV 91 MCH 30.7 MCHC 33.7 RDW 13.5 Plt Count 185 Seg Neutrophils % 66.1 Lymphocytes % 21.3 Monocytes % 10.3 Eosinophils % 1.8 Basophils % 0.5 Absolute Neutrophils 3.4 Absolute Lymphocytes 1.1 Absolute Monocytes 0.5 Absolute Eosinophils 0.1 Absolute Basophils 0.0 Sodium 141.9 Potassium 3.5 L Chloride 112 H Carbon Dioxide 20 L Anion Gap 10 BUN 7 Creatinine 0.67 Est GFR ( Amer) > 60 Est GFR (Non-Af Amer) > 60 Glucose 98 Calcium 8.4 Impressions: Abdomen/Pelvis CT 06/17/17 00:00 IMPRESSION: 1. Sigmoid diverticulitis. No abscess. Small amount of free air consistent with perforation. KUB X-Ray 06/18/17 00:00 IMPRESSION: Nonobstructive bowel gas pattern Assessment & Plan - Diagnosis (1) Perforation of sigmoid colon due to diverticulitis Is this a current diagnosis for this admission?: Yes Plan: Infection responding well with antibiotics however patient with continued nausea. We have switched her antinausea medication and she states that the it has improved. We will keep the patient n.p.o. for now since she had emesis last night. Continue IV fluids and antibiotics.
[2017-06-20] MEDS ORDERED: ONDANSETRON HCL INJ/PF 4 MG/2 ML SDV IV PRN (11:30)
[2017-06-20] MEDS ORDERED: DEXTROSE 5%-1/2 NORMAL SALINE 1,000 ML with POTASSIUM CHLORIDE 20 MEQ IV PRN ×2 (12:38)
--- NOTE | 2017-06-20 12:46 | PDOC PROGRESS REPORT ---
Subjective Progress Note for:: 06/20/17 Subjective:: Patient admitted with abdominal pain as well as nausea. Abdominal pain improved however patient still has a lot of nausea and she apparently vomited yesterday. His infection appears to be improving this may actually be secondary to the antibiotics. Anti-medic was changed to Phenergan and she appears to be doing better with this. Reason For Visit: SIGMOID DIVERTICULITIS Physical Exam Vital Signs: Temp Pulse Resp BP Pulse Ox 98.8 F 57 L 16 124/76 98 06/20/17 11:30 06/20/17 11:30 06/20/17 11:30 06/20/17 11:30 06/20/17 11:30 Intake & Output 06/19/17 06/20/17 06/21/17 06:59 06:59 06:59 Intake Total 820 Output Total 150 Balance 670 Weight 63.1 kg General appearance: PRESENT: no acute distress, other - Healthy looking Head exam: PRESENT: atraumatic, normocephalic Eye exam: PRESENT: conjunctiva pink, EOMI, PERRLA. ABSENT: scleral icterus Ear exam: PRESENT: normal external ear exam Mouth exam: PRESENT: moist, tongue midline Neck exam: ABSENT: carotid bruit, JVD, lymphadenopathy, thyromegaly Respiratory exam: PRESENT: clear to auscultation cherelle. ABSENT: rales, rhonchi, wheezes Cardiovascular exam: PRESENT: RRR. ABSENT: diastolic murmur, rubs, systolic murmur Pulses: PRESENT: normal dorsalis pedis pul Vascular exam: PRESENT: normal capillary refill GI/Abdominal exam: PRESENT: normal bowel sounds, soft, tenderness - Minimal left lower quadrant. ABSENT: distended, guarding, mass, organolmegaly, rebound Rectal exam: PRESENT: deferred Extremities exam: PRESENT: full ROM. ABSENT: calf tenderness, clubbing, pedal edema Neurological exam: PRESENT: alert, awake, oriented to person, oriented to place , oriented to time, oriented to situation, CN II-XII grossly intact. ABSENT: motor sensory deficit Psychiatric exam: PRESENT: appropriate affect, normal mood. ABSENT: homicidal ideation, suicidal ideation Skin exam: PRESENT: dry, intact, warm. ABSENT: cyanosis, rash Results Laboratory Results: 06/20/17 06:28 06/20/17 06:28 06/20/17 06/20/17 06:28 06:28 WBC 5.1 RBC 3.54 L Hgb 10.9 L Hct 32.2 L MCV 91 MCH 30.7 MCHC 33.7 RDW 13.5 Plt Count 185 Seg Neutrophils % 66.1 Lymphocytes % 21.3 Monocytes % 10.3 Eosinophils % 1.8 Basophils % 0.5 Absolute Neutrophils 3.4 Absolute Lymphocytes 1.1 Absolute Monocytes 0.5 Absolute Eosinophils 0.1 Absolute Basophils 0.0 Sodium 141.9 Potassium 3.5 L Chloride 112 H Carbon Dioxide 20 L Anion Gap 10 BUN 7 Creatinine 0.67 Est GFR ( Amer) > 60 Est GFR (Non-Af Amer) > 60 Glucose 98 Calcium 8.4 Impressions: Abdomen/Pelvis CT 06/17/17 00:00 IMPRESSION: 1. Sigmoid diverticulitis. No abscess. Small amount of free air consistent with perforation. KUB X-Ray 06/18/17 00:00 IMPRESSION: Nonobstructive bowel gas pattern Assessment & Plan - Diagnosis (1) Sigmoid diverticulitis Is this a current diagnosis for this admission?: Yes Plan: Cont Flagyl, Cipro IV and transition to oral abx once stable (2) Perforation of sigmoid colon due to diverticulitis Is this a current diagnosis for this admission?: Yes Plan: Improved. Will continue conservative management Patient was made n.p.o. again due to her nausea and vomiting. (3) Hypokalemia Is this a current diagnosis for this admission?: Yes Plan: Likely from HCTZ which patient uses as outpatient. Cont to replace as needed - Time Time Spent with patient: 15-24 minutes Medications reviewed and adjusted accordingly: Yes Anticipated discharge: Home Within: within 48 hours - Inpatient Certification Based on my medical assessment, after consideration of the patient's comorbidities, presenting symptoms, or acuity I expect that the services needed warrant INPATIENT care.: Yes Medical Necessity: Need for IV Antibiotics, Risk of Complication if Not Cared For in Hospital - Plan Summary Plan Summary: Continue current IV antibiotics and advance diet once cleared by surgery. Patient has otherwise remained hemodynamically stable
--- NOTE | 2017-06-20 12:54 | RADIOLOGY REPORT (SQ) ---
EXAM DESCRIPTION: ABDOMEN 2 VIEWS COMPLETED DATE/TIME: 06/20/2017 12:03 pm REASON FOR STUDY: emesis COMPARISON: 06/18/2017 NUMBER OF VIEWS: Two views. TECHNIQUE: Supine and erect/decubitus radiographic images of the abdomen acquired. LIMITATIONS: None. FINDINGS: FREE AIR: None. No abnormal gas collections. LUNG BASES: Clear. BOWEL GAS PATTERN: Nonobstructive pattern. No dilated loops or air fluid levels. Small amount residu al oral contrast is identified in distribution of the colon. CALCIFICATIONS: No suspicious calcifications. SOFT TISSUES: No gross mass or suggestion of organomegaly. HARDWARE: None in the abdomen. BONES: No acute fracture. No worrisome bone lesions. OTHER: No other significant finding. IMPRESSION: NO RADIOGRAPHIC EVIDENCE FOR ACUTE ABDOMINAL DISEASE. TECHNICAL DOCUMENTATION: JOB ID: [id number] [employer]- All Rights Reserved Reading location - IP/workstation name: [email or web address]
[2017-06-20] MEDS: POTASSI CL 20 MEQ/D5-1/2NS 1L 1000 ML IV PRN (14:44)
[2017-06-21] MEDS: METRONIDAZOLE 500 MG/NS RTU 100 ML IV SCH ×2 (00:41→05:55)
[2017-06-21] MEDS: POTASSI CL 20 MEQ/D5-1/2NS 1L 1000 ML IV PRN ×2 (00:43→17:12)
[2017-06-21] MEDS ORDERED: METRONIDAZOLE 500 MG/NS RTU 100 ML IV ONE (05:25)
[2017-06-21] MEDS: OXYCODONE-ACETAMINOPHEN 5-325 MG TABLET PO PRN ×2 (05:54→17:11)
[2017-06-21] MEDS: PROMETHAZINE HCL INJ 25 MG/1 ML VIAL IV PRN ×3 (06:41→23:33)
[2017-06-21 07:30] LABS: HEMATOCRIT 35.9 % (36.0-47.0); MEAN CORPUSCULAR HEMOGLOBIN 30.2 pg (27.0-33.4); MEAN CORPUSCULAR HGB CONC 33.4 g/dL (32.0-36.0); MEAN CORPUSCULAR VOLUME 90 fl (80-97); PLATELET COUNT 250 10^3/uL (150-450); RED BLOOD COUNT 3.98 10^6/uL (3.72-5.28); RED CELL DISTRIBUTION WIDTH 13.4 % (11.5-14.0); WHITE BLOOD COUNT 6.9 10^3/uL (4.0-10.5)
[2017-06-21 07:45] LABS: ANION GAP 8 (5-19); BLOOD UREA NITROGEN 7 mg/dL (7-20); CALCIUM 8.4 mg/dL (8.4-10.2); CARBON DIOXIDE 21 mmol/L (22-30); CHLORIDE 113 mmol/L (98-107); GLUCOSE 96 mg/dL (75-110); POTASSIUM 3.3 mmol/L (3.6-5.0); SODIUM 141.7 mmol/L (137-145)
[2017-06-21] MEDS ORDERED: POTASSIUM CHLORIDE 20 MEQ/15 ML UDCUP PO ONE (10:12)
[2017-06-21] MEDS ORDERED: PIPERACILLIN/TAZOBACTAM 3.375 GM VIAL IV SCH (10:15)
[2017-06-21] MEDS: FAMOTIDINE INJ/PF 20 MG/2 ML SDV IV SCH ×2 (10:35→21:45)
[2017-06-21] MEDS: ENOXAPARIN SODIUM INJ 40 MG/0.4 ML DISP.SYRIN SUBCUT SCH (10:35)
[2017-06-21] MEDS ORDERED: POTASSI CL 20 MEQ/50 ML RIDER 20 MEQ/50 ML RTUPB IV ONE (11:00)
[2017-06-21] MEDS: PIPERACILLIN SODIUM/TAZOBACTAM 3.375 GM in NORMAL SALINE 100 ML IV SCH ×2 (14:36→21:55)
--- NOTE | 2017-06-21 15:09 | PDOC PROGRESS REPORT ---
Subjective Progress Note for:: 06/21/17 Subjective:: Patient states that she thinks her nausea is from the ciprofloxacin, though it could be from the Flagyl. She states that she has taken Cipro in the past and has had nausea with it. Phenergan is working for her and she is able to take a little bit of clear liquids today. No chest pain or shortness of breath. No fevers or chills. Very minimal left lower quadrant pain. Urinating without difficulty. Does not feel constipated. No fever or chills. She feels weak after having been in bed for several days. Reason For Visit: SIGMOID DIVERTICULITIS Physical Exam Vital Signs: Temp Pulse Resp BP Pulse Ox 98.5 F 82 16 124/80 100 06/21/17 11:57 06/21/17 11:57 06/21/17 11:57 06/21/17 11:57 06/21/17 11:57 Intake & Output 06/20/17 06/21/17 06/22/17 06:59 06:59 06:59 Intake Total 820 1400 Output Total 150 Balance 670 1400 Weight 63.1 kg 63 kg General appearance: PRESENT: no acute distress, cooperative, thin Head exam: PRESENT: atraumatic, normocephalic Eye exam: PRESENT: conjunctiva pink, EOMI. ABSENT: scleral icterus Ear exam: PRESENT: normal external ear exam Mouth exam: PRESENT: moist Neck exam: PRESENT: lymphadenopathy Respiratory exam: PRESENT: clear to auscultation cherelle. ABSENT: rales, rhonchi, wheezes Cardiovascular exam: PRESENT: RRR. ABSENT: systolic murmur Pulses: PRESENT: normal radial pulses, normal dorsalis pedis pul GI/Abdominal exam: PRESENT: hyperactive bowel sounds, soft, tenderness. ABSENT : distended, firm, guarding, rebound, rigid Rectal exam: PRESENT: deferred Extremities exam: ABSENT: pedal edema Musculoskeletal exam: PRESENT: normal inspection Neurological exam: PRESENT: alert, awake, oriented to person, oriented to place , oriented to situation, CN II-XII grossly intact Psychiatric exam: PRESENT: appropriate affect. ABSENT: anxious Skin exam: PRESENT: dry, intact, warm Results Laboratory Results: 06/21/17 06:30 06/21/17 06:30 06/21/17 06/21/17 06:30 06:30 WBC 6.9 RBC 3.98 Hgb 12.0 Hct 35.9 L MCV 90 MCH 30.2 MCHC 33.4 RDW 13.4 Plt Count 250 Sodium 141.7 Potassium 3.3 L Chloride 113 H Carbon Dioxide 21 L Anion Gap 8 BUN 7 Creatinine 0.73 Est GFR ( Amer) > 60 Est GFR (Non-Af Amer) > 60 Glucose 96 Calcium 8.4 Impressions: Abdomen/Pelvis CT 06/17/17 00:00 IMPRESSION: 1. Sigmoid diverticulitis. No abscess. Small amount of free air consistent with perforation. KUB X-Ray 06/18/17 00:00 IMPRESSION: Nonobstructive bowel gas pattern Abdomen X-Ray 06/20/17 00:00 IMPRESSION: NO RADIOGRAPHIC EVIDENCE FOR ACUTE ABDOMINAL DISEASE. Status: Image reviewed by me - Abdominal plain films reviewed by me. No evidence of free air. He has bowel gas and contrast in the bowels. No concerning bowel loop dilatation. Assessment & Plan - Diagnosis (1) Intractable nausea and vomiting Is this a current diagnosis for this admission?: Yes Plan: May be secondary to antibiotics versus secondary to her primary bowel complaint. Today we will discontinue Flagyl and ciprofloxacin and start Zosyn 3.375 mg IV every 8 hours for diverticulitis. Will continue with as needed Phenergan. Will continue with her clear liquid diet. (2) Hypokalemia Is this a current diagnosis for this admission?: Yes Plan: Potassium is 3.3 this morning. I have ordered 20 mEq of IV potassium and 40 mEq of oral potassium. Patient's nurse will work with her to see which route she can tolerate best given her nausea and vomiting and also some pain at IV site with potassium infusion (3) Perforation of sigmoid colon due to diverticulitis Is this a current diagnosis for this admission?: Yes Plan: Plain films of the abdomen yesterday did not show free air. We will continue to monitor. Her abdominal exam is not concerning at this time. Continue to treat diverticulitis. (4) Sigmoid diverticulitis Is this a current diagnosis for this admission?: Yes Plan: I have changed her antibiotics to Zosyn from Cipro and Flagyl, please see first problem above. - Time Time Spent with patient: 25-34 minutes Anticipated discharge: Home Within: within 48 hours - Inpatient Certification Based on my medical assessment, after consideration of the patient's comorbidities, presenting symptoms, or acuity I expect that the services needed warrant INPATIENT care.: Yes I certify that my determination is in accordance with my understanding of Medicare's requirements for reasonable and necessary INPATIENT services [42 CFR 412.3e].: Yes Medical Necessity: Need for IV Antibiotics, Risk of Complication if Not Cared For in Hospital
--- NOTE | 2017-06-21 18:21 | PDOC PROGRESS REPORT ---
Subjective Progress Note for:: 06/21/17 Subjective:: less LLQ pains Reason For Visit: SIGMOID DIVERTICULITIS Physical Exam Vital Signs: Temp Pulse Resp BP Pulse Ox 99.0 F 83 16 133/84 H 99 06/21/17 16:31 06/21/17 16:31 06/21/17 16:31 06/21/17 16:31 06/21/17 16:31 Intake & Output 06/20/17 06/21/17 06/22/17 06:59 06:59 06:59 Intake Total 820 1400 Output Total 150 Balance 670 1400 Weight 63.1 kg 63 kg General appearance: PRESENT: no acute distress Exam: Abd is soft with mild LLQ tenderness Had BM this morning Results Laboratory Results: 06/21/17 06:30 06/21/17 15:55 06/21/17 06/21/17 06/21/17 06:30 06:30 15:55 WBC 6.9 RBC 3.98 Hgb 12.0 Hct 35.9 L MCV 90 MCH 30.2 MCHC 33.4 RDW 13.4 Plt Count 250 Sodium 141.7 Potassium 3.3 L 3.9 Chloride 113 H Carbon Dioxide 21 L Anion Gap 8 BUN 7 Creatinine 0.73 Est GFR ( Amer) > 60 Est GFR (Non-Af Amer) > 60 Glucose 96 Calcium 8.4 Impressions: Abdomen/Pelvis CT 06/17/17 00:00 IMPRESSION: 1. Sigmoid diverticulitis. No abscess. Small amount of free air consistent with perforation. KUB X-Ray 06/18/17 00:00 IMPRESSION: Nonobstructive bowel gas pattern Abdomen X-Ray 06/20/17 00:00 IMPRESSION: NO RADIOGRAPHIC EVIDENCE FOR ACUTE ABDOMINAL DISEASE. Assessment & Plan - Diagnosis (1) Perforation of sigmoid colon due to diverticulitis Is this a current diagnosis for this admission?: Yes - Time Time Spent with patient: 15-24 minutes - Plan Summary Plan Summary: Start clear liquids Continue antibiotics
[2017-06-22] MEDS: POTASSI CL 20 MEQ/D5-1/2NS 1L 1000 ML IV PRN ×2 (04:40→16:39)
[2017-06-22] MEDS: PIPERACILLIN SODIUM/TAZOBACTAM 3.375 GM in NORMAL SALINE 100 ML IV SCH ×3 (07:04→22:04)
[2017-06-22] MEDS: PROMETHAZINE HCL INJ 25 MG/1 ML VIAL IV PRN ×2 (07:05→18:32)
[2017-06-22 07:19] LABS: ANION GAP 8 (5-19); BLOOD UREA NITROGEN 2 mg/dL (7-20); CARBON DIOXIDE 22 mmol/L (22-30); CHLORIDE 110 mmol/L (98-107); GLUCOSE 180 mg/dL (75-110); SODIUM 140.4 mmol/L (137-145)
[2017-06-22] MEDS: ENOXAPARIN SODIUM INJ 40 MG/0.4 ML DISP.SYRIN SUBCUT SCH (09:31)
[2017-06-22] MEDS: OXYCODONE-ACETAMINOPHEN 5-325 MG TABLET PO PRN ×2 (09:32→18:33)
[2017-06-22] MEDS: FAMOTIDINE INJ/PF 20 MG/2 ML SDV IV SCH ×2 (09:32→22:04)
--- NOTE | 2017-06-22 17:00 | PDOC PROGRESS REPORT ---
Subjective Progress Note for:: 06/22/17 Subjective:: Patient had mucousy diarrhea with blood streaks several times overnight. This resolved around 10:00 this morning. Abdominal pain is improving. Nausea is significantly improved. No emesis. No fevers or chills. No chest pain or shortness of breath. Reason For Visit: SIGMOID DIVERTICULITIS Physical Exam Vital Signs: Temp Pulse Resp BP Pulse Ox 98.2 F 83 18 129/76 H 100 06/22/17 15:22 06/22/17 15:22 06/22/17 11:28 06/22/17 15:22 06/22/17 15:22 Intake & Output 06/21/17 06/22/17 06/23/17 06:59 06:59 06:59 Intake Total 1880 Balance 1880 Weight 63 kg 63.1 kg General appearance: PRESENT: no acute distress, cooperative, thin Head exam: PRESENT: atraumatic, normocephalic Eye exam: PRESENT: conjunctiva pink, EOMI Ear exam: PRESENT: normal external ear exam. ABSENT: drainage Mouth exam: PRESENT: moist, neck supple Respiratory exam: PRESENT: clear to auscultation cherelle. ABSENT: rales, rhonchi, wheezes Cardiovascular exam: PRESENT: RRR. ABSENT: systolic murmur Pulses: PRESENT: normal radial pulses Vascular exam: PRESENT: normal capillary refill GI/Abdominal exam: PRESENT: hyperactive bowel sounds, soft, tenderness. ABSENT : distended, guarding Rectal exam: PRESENT: deferred Extremities exam: ABSENT: calf tenderness Musculoskeletal exam: PRESENT: normal inspection. ABSENT: deformity Neurological exam: PRESENT: alert, awake, oriented to person, oriented to place , oriented to situation, CN II-XII grossly intact Psychiatric exam: PRESENT: appropriate affect. ABSENT: anxious Skin exam: PRESENT: dry, intact, warm Results Laboratory Results: 06/21/17 06:30 06/22/17 06:10 06/22/17 06/22/17 06:10 09:00 Sodium 140.4 Potassium 4.0 Chloride 110 H Carbon Dioxide 22 Anion Gap 8 BUN 2 L Creatinine 0.68 Est GFR ( Amer) > 60 Est GFR (Non-Af Amer) > 60 Glucose 180 H Calcium 8.0 L Stool Occult Blood NEGATIVE Impressions: Abdomen/Pelvis CT 06/17/17 00:00 IMPRESSION: 1. Sigmoid diverticulitis. No abscess. Small amount of free air consistent with perforation. KUB X-Ray 06/18/17 00:00 IMPRESSION: Nonobstructive bowel gas pattern Abdomen X-Ray 06/20/17 00:00 IMPRESSION: NO RADIOGRAPHIC EVIDENCE FOR ACUTE ABDOMINAL DISEASE. Assessment & Plan - Diagnosis (1) Intractable nausea and vomiting Is this a current diagnosis for this admission?: Yes Plan: This has significantly improved off of Cipro and Flagyl. We will continue Zosyn for now. Patient is using less Phenergan. She has been advanced to a full liquid diet. (2) Hypokalemia Is this a current diagnosis for this admission?: Yes Plan: Resolved. We will continue to monitor while her nutritional status is poor. (3) Perforation of sigmoid colon due to diverticulitis Is this a current diagnosis for this admission?: Yes Plan: We will continue with Zosyn. Surgeon following. Advancing diet slowly. She had what seems to have been diarrhea with blood streaking. Not surprising given diverticulitis. Fecal occult blood test was negative. Nursing staff to monitor stools. (4) Sigmoid diverticulitis Is this a current diagnosis for this admission?: Yes Plan: Please see plan above. - Time Time Spent with patient: 25-34 minutes Anticipated discharge: Home Within: within 48 hours - Inpatient Certification Medical Necessity: Significant Comorbidiites Make Outpatient Treatment Too Risky , Need Close Monitoring Due to Risk of Patient Decompensation, Need for IV Antibiotics, Risk of Complication if Not Cared For in Hospital
--- NOTE | 2017-06-22 20:04 | PDOC PROGRESS REPORT ---
Subjective Progress Note for:: 06/22/17 Subjective:: less pains Reason For Visit: SIGMOID DIVERTICULITIS Physical Exam Vital Signs: Temp Pulse Resp BP Pulse Ox 98.2 F 83 18 129/76 H 100 06/22/17 15:22 06/22/17 15:22 06/22/17 11:28 06/22/17 15:22 06/22/17 15:22 Intake & Output 06/21/17 06/22/17 06/23/17 06:59 06:59 06:59 Intake Total 1880 926 Balance 1880 926 Weight 63 kg 63.1 kg Exam: abdomen with mod tenderness LLQ + BM Results Laboratory Results: 06/21/17 06:30 06/22/17 06:10 06/22/17 06/22/17 06:10 09:00 Sodium 140.4 Potassium 4.0 Chloride 110 H Carbon Dioxide 22 Anion Gap 8 BUN 2 L Creatinine 0.68 Est GFR ( Amer) > 60 Est GFR (Non-Af Amer) > 60 Glucose 180 H Calcium 8.0 L Stool Occult Blood NEGATIVE Impressions: Abdomen/Pelvis CT 06/17/17 00:00 IMPRESSION: 1. Sigmoid diverticulitis. No abscess. Small amount of free air consistent with perforation. KUB X-Ray 06/18/17 00:00 IMPRESSION: Nonobstructive bowel gas pattern Abdomen X-Ray 06/20/17 00:00 IMPRESSION: NO RADIOGRAPHIC EVIDENCE FOR ACUTE ABDOMINAL DISEASE. Assessment & Plan - Diagnosis (1) Perforation of sigmoid colon due to diverticulitis Is this a current diagnosis for this admission?: Yes - Time Time Spent with patient: 15-24 minutes - Plan Summary Plan Summary: OK to increase diet to full liquids since tolerating clears. Possible repeat CT scan abd/pelvis prior to discharge in 48-72 hrs.
[2017-06-23] MEDS: TEMAZEPAM 15 MG CAPSULE PO PRN (00:14)
[2017-06-23] MEDS: PIPERACILLIN SODIUM/TAZOBACTAM 3.375 GM in NORMAL SALINE 100 ML IV SCH ×3 (05:41→21:28)
[2017-06-23 06:02] LABS: HEMATOCRIT 37.8 % (36.0-47.0); HEMOGLOBIN 12.8 g/dL (12.0-15.5); MEAN CORPUSCULAR HEMOGLOBIN 30.4 pg (27.0-33.4); MEAN CORPUSCULAR VOLUME 90 fl (80-97); PLATELET COUNT 275 10^3/uL (150-450); RED BLOOD COUNT 4.22 10^6/uL (3.72-5.28); RED CELL DISTRIBUTION WIDTH 13.7 % (11.5-14.0); WHITE BLOOD COUNT 5.2 10^3/uL (4.0-10.5)
[2017-06-23 06:16] LABS: ANION GAP 11 (5-19); BLOOD UREA NITROGEN 3 mg/dL (7-20); CALCIUM 8.7 mg/dL (8.4-10.2); CARBON DIOXIDE 24 mmol/L (22-30); CHLORIDE 108 mmol/L (98-107); GLUCOSE 96 mg/dL (75-110); POTASSIUM 3.7 mmol/L (3.6-5.0); SODIUM 142.6 mmol/L (137-145)
[2017-06-23] MEDS: POTASSI CL 20 MEQ/D5-1/2NS 1L 1000 ML IV PRN (07:47)
[2017-06-23] MEDS: PROMETHAZINE HCL INJ 25 MG/1 ML VIAL IV PRN ×3 (07:47→22:39)
[2017-06-23] MEDS: OXYCODONE-ACETAMINOPHEN 5-325 MG TABLET PO PRN ×2 (08:42→13:58)
[2017-06-23] MEDS: ENOXAPARIN SODIUM INJ 40 MG/0.4 ML DISP.SYRIN SUBCUT SCH (09:53)
[2017-06-23] MEDS: FAMOTIDINE INJ/PF 20 MG/2 ML SDV IV SCH ×2 (09:53→21:29)
--- NOTE | 2017-06-23 17:58 | PDOC PROGRESS REPORT ---
Subjective Progress Note for:: 06/23/17 Subjective:: She says she feels great ; minimal pain; tolerating p.o. well Reason For Visit: SIGMOID DIVERTICULITIS Physical Exam Vital Signs: Temp Pulse Resp BP Pulse Ox 98.9 F 73 16 138/79 H 100 06/23/17 16:50 06/23/17 16:50 06/23/17 16:50 06/23/17 16:50 06/23/17 16:50 Intake & Output 06/22/17 06/23/17 06/24/17 00:59 00:59 00:59 Intake Total 1640 1166 Balance 1640 1166 Weight 63 kg 63.1 kg 63 kg General appearance: PRESENT: no acute distress, cooperative, thin Head exam: PRESENT: atraumatic, normocephalic Eye exam: PRESENT: conjunctiva pink, EOMI Ear exam: PRESENT: normal external ear exam. ABSENT: drainage Mouth exam: PRESENT: moist, neck supple Respiratory exam: PRESENT: clear to auscultation cherelle. ABSENT: rales, rhonchi, wheezes Cardiovascular exam: PRESENT: RRR. ABSENT: systolic murmur Pulses: PRESENT: normal radial pulses Vascular exam: PRESENT: normal capillary refill GI/Abdominal exam: PRESENT: hyperactive bowel sounds, soft, tenderness. ABSENT : distended, guarding Rectal exam: PRESENT: deferred Extremities exam: ABSENT: calf tenderness Musculoskeletal exam: PRESENT: normal inspection. ABSENT: deformity Neurological exam: PRESENT: alert, awake, oriented to person, oriented to place , oriented to situation, CN II-XII grossly intact Psychiatric exam: PRESENT: appropriate affect. ABSENT: anxious Skin exam: PRESENT: dry, intact, warm Results Laboratory Results: 06/23/17 05:45 06/23/17 05:45 06/23/17 06/23/17 05:45 05:45 WBC 5.2 RBC 4.22 Hgb 12.8 Hct 37.8 MCV 90 MCH 30.4 MCHC 34.0 RDW 13.7 Plt Count 275 Sodium 142.6 Potassium 3.7 Chloride 108 H Carbon Dioxide 24 Anion Gap 11 BUN 3 L Creatinine 0.67 Est GFR ( Amer) > 60 Est GFR (Non-Af Amer) > 60 Glucose 96 Calcium 8.7 Impressions: Abdomen/Pelvis CT 06/17/17 00:00 IMPRESSION: 1. Sigmoid diverticulitis. No abscess. Small amount of free air consistent with perforation. KUB X-Ray 06/18/17 00:00 IMPRESSION: Nonobstructive bowel gas pattern Abdomen X-Ray 06/20/17 00:00 IMPRESSION: NO RADIOGRAPHIC EVIDENCE FOR ACUTE ABDOMINAL DISEASE. Assessment & Plan - Time Time Spent with patient: 1) Intractable nausea and vomiting Is this a current diagnosis for this admission?: Yes Plan: Improved patient is tolerating p.o. (2) Hypokalemia Is this a current diagnosis for this admission?: Yes Plan: Resolved. (3) Perforation of sigmoid colon due to diverticulitis Is this a current diagnosis for this admission?: Yes Plan: We will continue with Zosyn. Diet was advanced to full liquids Repeat CT abdomen and pelvis in 48 hours; patient may be then discharged as per surgery if asymptomatic (4) Sigmoid diverticulitis Is this a current diagnosis for this admission?: Yes Plan: Continue Zosyn IV
--- NOTE | 2017-06-23 20:58 | PDOC PROGRESS REPORT ---
Subjective Progress Note for:: 06/23/17 Subjective:: less pains. Feels better. Had 2 episodes diarrhea Reason For Visit: SIGMOID DIVERTICULITIS Physical Exam Vital Signs: Temp Pulse Resp BP Pulse Ox 98.7 F 81 18 140/84 H 100 06/23/17 19:56 06/23/17 19:56 06/23/17 19:56 06/23/17 19:56 06/23/17 19:56 Intake & Output 06/22/17 06/23/17 06/24/17 06:59 06:59 06:59 Intake Total 1880 926 Balance 1880 926 Weight 63.1 kg 63 kg Exam: soft still some tenderness at the LLQ Results Laboratory Results: 06/23/17 05:45 06/23/17 05:45 06/23/17 06/23/17 05:45 05:45 WBC 5.2 RBC 4.22 Hgb 12.8 Hct 37.8 MCV 90 MCH 30.4 MCHC 34.0 RDW 13.7 Plt Count 275 Sodium 142.6 Potassium 3.7 Chloride 108 H Carbon Dioxide 24 Anion Gap 11 BUN 3 L Creatinine 0.67 Est GFR ( Amer) > 60 Est GFR (Non-Af Amer) > 60 Glucose 96 Calcium 8.7 Impressions: Abdomen/Pelvis CT 06/17/17 00:00 IMPRESSION: 1. Sigmoid diverticulitis. No abscess. Small amount of free air consistent with perforation. KUB X-Ray 06/18/17 00:00 IMPRESSION: Nonobstructive bowel gas pattern Abdomen X-Ray 06/20/17 00:00 IMPRESSION: NO RADIOGRAPHIC EVIDENCE FOR ACUTE ABDOMINAL DISEASE. Assessment & Plan - Diagnosis (1) Perforation of sigmoid colon due to diverticulitis Is this a current diagnosis for this admission?: Yes - Time Time Spent with patient: 15-24 minutes - Plan Summary Plan Summary: Repeat CT scan abd/pelvis in am prior to eventual discharge
[2017-06-24 07:38] LABS: ANION GAP 10 (5-19); BLOOD UREA NITROGEN 7 mg/dL (7-20); CALCIUM 8.9 mg/dL (8.4-10.2); CARBON DIOXIDE 24 mmol/L (22-30); CHLORIDE 110 mmol/L (98-107); GLUCOSE 95 mg/dL (75-110); POTASSIUM 3.6 mmol/L (3.6-5.0); SODIUM 143.7 mmol/L (137-145)
[2017-06-24] MEDS: PIPERACILLIN SODIUM/TAZOBACTAM 3.375 GM in NORMAL SALINE 100 ML IV SCH ×2 (07:39→13:00)
[2017-06-24 08:09] LABS: ABSOLUTE BASOPHILS # (AUTO) 0.1 10^3/uL (0.0-0.2); ABSOLUTE EOSINOPHILS # (AUTO) 0.3 10^3/uL (0.0-0.6); ABSOLUTE LYMPHOCYTES (AUTO) 1.5 10^3/uL (0.5-4.7); ABSOLUTE MONOCYTES (AUTO) 0.8 10^3/uL (0.1-1.4); ABSOLUTE NEUT (AUTO) 4.5 10^3/uL (1.7-8.2); BASOPHILS % (AUTO) 0.8 % (0-2); EOSINOPHILS % (AUTO) 3.8 % (0-6); HEMATOCRIT 42.2 % (36.0-47.0); HEMOGLOBIN 14.3 g/dL (12.0-15.5); LYMPHOCYTES % (AUTO) 21.1 % (13-45); MEAN CORPUSCULAR HEMOGLOBIN 30.4 pg (27.0-33.4); MEAN CORPUSCULAR HGB CONC 33.8 g/dL (32.0-36.0); MEAN CORPUSCULAR VOLUME 90 fl (80-97); MONOCYTES % (AUTO) 11.3 % (3-13); PLATELET COUNT 333 10^3/uL (150-450); RED CELL DISTRIBUTION WIDTH 14.2 % (11.5-14.0); TOTAL CELLS COUNTED % (AUTO) 100 %; WHITE BLOOD COUNT 7.2 10^3/uL (4.0-10.5)
[2017-06-24] MEDS: PROMETHAZINE HCL INJ 25 MG/1 ML VIAL IV PRN (09:58)
--- NOTE | 2017-06-24 11:27 | RADIOLOGY REPORT (SQ) ---
EXAM DESCRIPTION: CT ABD/PELVIS ORAL ONLY COMPLETED DATE/TIME: 06/24/2017 10:48 am REASON FOR STUDY: Colon Perforation, Diverticulitis do 06/24/17 am COMPARISON: 06/17/2017 TECHNIQUE: CT scan of the abdomen and pelvis performed with oral contrast and no intravenous contras t. Images reviewed with lung, soft tissue, and bone windows. Reconstructed coronal and sagittal MPR i mages reviewed. All images stored on PACS. All CT scanners at this facility use dose modulation, iterative reconstruction, and/or weight based d osing when appropriate to reduce radiation dose to as low as reasonably achievable (ALARA). [facility]: Dose Right [facility]: CareDose [facility]: Dose Right [facility]: Teradose 4D [facility]: [employer] RADIATION DOSE: CT Rad equipment meets quality standard of care and radiation dose reduction techniq ues were employed. CTDIvol: 3.6 mGy. DLP: 180 mGy-cm. mGy. LIMITATIONS: None. FINDINGS: LOWER CHEST: On the current study a tiny right pleural effusion is identified with some mi nimal associated airspace consolidation most consistent with atelectatic changes. Minimal linear den sity is identified in the left lung base most consistent with subsegmental atelectasis NON-CONTRASTED LIVER, SPLEEN, ADRENALS: Evaluation limited by lack of IV contrast. No identified sign ificant masses. PANCREAS: No masses. No peripancreatic inflammatory changes. GALLBLADDER: No identified stones by CT criteria. No inflammatory changes to suggest cholecystitis. RIGHT KIDNEY AND URETER: No suspicious masses. Assessment limited by lack of IV contrast. No signif icant calcifications. No hydronephrosis or hydroureter. LEFT KIDNEY AND URETER: No suspicious masses. Assessment limited by lack of IV contrast. No signifi cant calcifications. No hydronephrosis or hydroureter. AORTA AND RETROPERITONEUM: No aneurysm. No retroperitoneal masses or adenopathy. BOWEL AND PERITONEAL CAVITY: The previously described changes consistent with sigmoid diverticulitis show interval improvement. There are tiny gas collections adjacent to the sigmoid colon which appea r to be within multiple colonic diverticula in the sigmoid colon. There are a couple tiny focal gas adjacent to the sigmoid colon which could conceivably be extraluminal within residual contained perfo rations. APPENDIX: Normal. PELVIS, BLADDER, AND ABDOMINAL WALL: No abnormal pelvic masses. No abdominal wall hernias. Bladder un remarkable. BONES: No significant findings. OTHER: No other significant finding. IMPRESSION: Interval improvement of the previously described changes consistent with sigmoid diverti culitis as noted above. There are tiny gas collections adjacent to the sigmoid colon which appear to be within multiple colonic diverticula in the sigmoid colon. There are a couple tiny focal gas shannon ections adjacent to the sigmoid colon which could conceivably be extraluminal within contained perfor ations. Other findings as noted above TECHNICAL DOCUMENTATION: JOB ID: [id number] Quality ID # [id number]: Final reports with documentation of one or more dose reduction techniques (e.g., Au tomated exposure control, adjustment of the mA and/or kV according to patient size, use of iterative reconstruction technique) 2010 [employer]- All Rights Reserved Reading location - IP/workstation name: [email or web address]
[2017-06-24] MEDS: ENOXAPARIN SODIUM INJ 40 MG/0.4 ML DISP.SYRIN SUBCUT SCH (11:54)
[2017-06-24] MEDS: FAMOTIDINE INJ/PF 20 MG/2 ML SDV IV SCH (11:54)
[2017-06-24] MEDS: OXYCODONE-ACETAMINOPHEN 5-325 MG TABLET PO PRN (12:23)
--- NOTE | 2017-06-24 12:59 | PDOC PROGRESS REPORT ---
Subjective Progress Note for:: 06/24/17 Reason For Visit: SIGMOID DIVERTICULITIS Patient reports overall she is feeling better. She tolerated her oral contrast this morning, having some diarrhea. According the patient she has had an extensive gastroenterology workup by Dr. Tan, [facility]. States she has had multiple colonoscopies, with diagnosis of diverticulosis disease. Apparently had multiple flareups no hospitalizations for diverticulitis. She is told she has GI motility issues and being referred to [place]. Her CT scan from this morning shows radiographic improvement of her diverticular disease Physical Exam Vital Signs: Temp Pulse Resp BP Pulse Ox 98.1 F 76 18 141/81 H 100 06/24/17 07:54 06/24/17 07:54 06/24/17 07:54 06/24/17 07:54 06/24/17 07:54 Intake & Output 06/23/17 06/24/17 06/25/17 06:59 06:59 06:59 Intake Total 926 480 Balance 926 480 Weight 63 kg 62.9 kg General appearance: PRESENT: no acute distress GI/Abdominal exam: PRESENT: other - Minimal left lower quadrant tenderness, no peritoneal signs no rigidity. Results Laboratory Results: 06/24/17 07:12 06/24/17 07:12 06/24/17 06/24/17 07:12 07:12 WBC 7.2 RBC 4.70 Hgb 14.3 Hct 42.2 MCV 90 MCH 30.4 MCHC 33.8 RDW 14.2 H Plt Count 333 Seg Neutrophils % 63.0 Lymphocytes % 21.1 Monocytes % 11.3 Eosinophils % 3.8 Basophils % 0.8 Absolute Neutrophils 4.5 Absolute Lymphocytes 1.5 Absolute Monocytes 0.8 Absolute Eosinophils 0.3 Absolute Basophils 0.1 Sodium 143.7 Potassium 3.6 Chloride 110 H Carbon Dioxide 24 Anion Gap 10 BUN 7 Creatinine 0.77 Est GFR ( Amer) > 60 Est GFR (Non-Af Amer) > 60 Glucose 95 Calcium 8.9 Impressions: KUB X-Ray 06/18/17 00:00 IMPRESSION: Nonobstructive bowel gas pattern Abdomen X-Ray 06/20/17 00:00 IMPRESSION: NO RADIOGRAPHIC EVIDENCE FOR ACUTE ABDOMINAL DISEASE. Abdomen/Pelvis CT 06/24/17 08:00 IMPRESSION: Interval improvement of the previously described changes consistent with sigmoid diverticulitis as noted above. There are tiny gas collections adjacent to the sigmoid colon which appear to be within multiple colonic diverticula in the sigmoid colon. There are a couple tiny focal gas collections adjacent to the sigmoid colon which could conceivably be extraluminal within contained perforations. Other findings as noted above Assessment & Plan - Diagnosis (1) Sigmoid diverticulitis Is this a current diagnosis for this admission?: Yes Plan: Complicated by microperforation, hospitalized for 1 week on IV antibiotics, clinically and radiographically improved. No indication for surgical intervention. Recommendations: 1. Diet modification, and short concluding course of p.o. antibiotics. 2. Patient may follow-up with [place] [facility] to discuss management of diverticulosis in the future. I spoke with the hospitalist regarding this today.
--- NOTE | 2017-06-24 18:09 | PDOC DISCHARGE SUMMARY ---
General - Admit/Disc Date/PCP Admission Date/Primary Care Provider: 06/17/17 17:23 ZACHERY MELVIN MD Discharge Date: 06/26/17 - Discharge Diagnosis (1) Perforation of sigmoid colon due to diverticulitis Is this a current diagnosis for this admission?: Yes (2) Intractable nausea and vomiting Is this a current diagnosis for this admission?: Yes (3) Hypokalemia Is this a current diagnosis for this admission?: Yes (4) Leukocytosis Is this a current diagnosis for this admission?: Yes - Additional Information Resuscitation Status: Full Code Home Medications: Alprazolam [Xanax 0.5 mg Tablet] 0.5 mg PO Q12HP PRN 06/17/17 Lisinopril/Hydrochlorothiazide [Lisinopril-Hctz 10-12.5 mg Tab] 1 tab PO DAILY 06/17/17 Norethindrone AC-Eth Estradiol [Norethind-Eth Estrad 1-0.02 mg] 1 tab PO QAM Omeprazole 40 mg PO BIDACBS 06/17/17 History of Present Illness History of Present Illness: 47-year-old presented on June 17, 2017, abdominal pain and CT abdomen on presentation with localized sigmoid diverticulitis with perforation. Referred to H&P done on 06/17/2017 for details. Hospital Course Hospital Course: 47-year-old woman presented on June 17, 2017 with abdominal pain and CT abdomen on presentation with localized sigmoid diverticulitis with perforation. She was started on IV antibiotics, kept n.p.o. and evaluated by surgery. She responded to antibiotics and medically managed. Started on clear liquid diet and advance diet as tolerated. Had a repeat CAT scan abdomen with interval improvement of the previously described changes consistent with sigmoid diverticulitis. She was cleared by surgery for discharge home. She is to follow-up with PCP and surgery. Physical Exam Vital Signs: Temp Pulse Resp BP Pulse Ox 98.5 F 83 16 125/76 98 06/24/17 16:07 06/24/17 16:07 06/24/17 16:07 06/24/17 16:07 06/24/17 16:07 Intake & Output 06/23/17 06/24/17 06/25/17 06:59 06:59 06:59 Intake Total 926 480 553 Balance 926 480 553 Weight 63 kg 62.9 kg General appearance: PRESENT: no acute distress, cooperative Head exam: PRESENT: atraumatic, normocephalic Eye exam: PRESENT: EOMI Mouth exam: PRESENT: moist, neck supple Neck exam: PRESENT: full ROM Respiratory exam: PRESENT: clear to auscultation cherelle, unlabored Cardiovascular exam: PRESENT: RRR GI/Abdominal exam: PRESENT: normal bowel sounds, soft Rectal exam: PRESENT: deferred Extremities exam: PRESENT: full ROM Musculoskeletal exam: PRESENT: ambulatory, full ROM Neurological exam: PRESENT: alert, awake, oriented to person, oriented to time, oriented to situation Psychiatric exam: PRESENT: appropriate affect Skin exam: PRESENT: dry, warm Results Laboratory Results: 06/24/17 07:12 06/24/17 07:12 06/24/17 06/24/17 07:12 07:12 WBC 7.2 RBC 4.70 Hgb 14.3 Hct 42.2 MCV 90 MCH 30.4 MCHC 33.8 RDW 14.2 H Plt Count 333 Seg Neutrophils % 63.0 Lymphocytes % 21.1 Monocytes % 11.3 Eosinophils % 3.8 Basophils % 0.8 Absolute Neutrophils 4.5 Absolute Lymphocytes 1.5 Absolute Monocytes 0.8 Absolute Eosinophils 0.3 Absolute Basophils 0.1 Sodium 143.7 Potassium 3.6 Chloride 110 H Carbon Dioxide 24 Anion Gap 10 BUN 7 Creatinine 0.77 Est GFR ( Amer) > 60 Est GFR (Non-Af Amer) > 60 Glucose 95 Calcium 8.9 Impressions: KUB X-Ray 06/18/17 00:00 IMPRESSION: Nonobstructive bowel gas pattern Abdomen X-Ray 06/20/17 00:00 IMPRESSION: NO RADIOGRAPHIC EVIDENCE FOR ACUTE ABDOMINAL DISEASE. Abdomen/Pelvis CT 06/24/17 08:00 IMPRESSION: Interval improvement of the previously described changes consistent with sigmoid diverticulitis as noted above. There are tiny gas collections adjacent to the sigmoid colon which appear to be within multiple colonic diverticula in the sigmoid colon. There are a couple tiny focal gas collections adjacent to the sigmoid colon which could conceivably be extraluminal within contained perforations. Other findings as noted above Qualifiers - * PATEINT BEING DISCHARGED WITH ANY OF THE FOLLOWING DIAGNOSIS?: No VTE patient discharged on overlapping Therapy?: Yes Plan Time Spent: Less than 30 Minutes
[2017-06-24 18:23] VITALS: BP 138/74
== END 2017-06-24 18:42 | disposition home or self-care (01) | DRG 392 ==
LOC: ER 10:39 → EH 17:23 → 2N 06-18 01:08
PROVIDERS: ADMIT Emergency Medicine; ATTEND Emergency Medicine
DX: K57.20 Diverticulitis of large intestine with perforation and abscess without bleeding (principal); I10 Essential (primary) hypertension; E87.6 Hypokalemia
CPT/HCPCS: 36415; 74018; 74019; 74176; 74177; 80048; 80053; 81001; 82272; 83690; 83735; 84132; 85025; 85027; 96361; 96365; 96367; 96375; 96376; 99285; J0696; J0744; J1170; J1650; J2405; J2543; J2550; J3010; J3480; J3490; J7030; S0028

== ENCOUNTER 2020-01-10 08:44 | Observation (INO) | payer BC ==
[2020-01-10] MEDS ORDERED: METHYLPREDNISOLONE INJ 125 MG/2 ML SDV IV ONE (10:04)
[2020-01-10] MEDS ORDERED: FAMOTIDINE INJ/PF 20 MG/2 ML SDV IV ONE (10:05)
[2020-01-10] MEDS ORDERED: NORMAL SALINE 1000 ML 1,000 ML IV ONE ×2 (10:05→13:50)
--- NOTE | 2020-01-10 10:39 | RADIOLOGY REPORT (SQ) ---
EXAM DESCRIPTION: CHEST SINGLE VIEW IMAGES COMPLETED DATE/TIME: 01/10/2020 10:19 am REASON FOR STUDY: allergic reaction COMPARISON: None. EXAM PARAMETERS: NUMBER OF VIEWS: One view. TECHNIQUE: Single frontal radiographic view of the chest acquired. RADIATION DOSE: NA LIMITATIONS: None. FINDINGS: LUNGS AND PLEURA: No opacities, masses or pneumothorax. No pleural effusion. MEDIASTINUM AND HILAR STRUCTURES: No masses. Contour normal. HEART AND VASCULAR STRUCTURES: Heart normal in size. Normal vasculature. BONES: No acute findings. HARDWARE: None in the chest. OTHER: No other significant finding. IMPRESSION: NO ACUTE RADIOGRAPHIC FINDING IN THE CHEST. TECHNICAL DOCUMENTATION: JOB ID: [id number] 2010 [employer]- All Rights Reserved Reading location - IP/workstation name: [email or web address]
[2020-01-10 11:16] LABS: ABSOLUTE EOSINOPHILS # (AUTO) 0.2 10^3/uL (0.0-0.6); ABSOLUTE LYMPHOCYTES (AUTO) 1.6 10^3/uL (0.5-4.7); ABSOLUTE MONOCYTES (AUTO) 0.6 10^3/uL (0.1-1.4); ABSOLUTE NEUT (AUTO) 4.5 10^3/uL (1.7-8.2); BASOPHILS % (AUTO) 0.4 % (0-2); EOSINOPHILS % (AUTO) 2.8 % (0-6); HEMATOCRIT 41.7 % (36.0-47.0); HEMOGLOBIN 14.3 g/dL (12.0-15.5); LYMPHOCYTES % (AUTO) 22.9 % (13-45); MEAN CORPUSCULAR HEMOGLOBIN 30.1 pg (27.0-33.4); MEAN CORPUSCULAR HGB CONC 34.3 g/dL (32.0-36.0); MEAN CORPUSCULAR VOLUME 88 fl (80-97); MONOCYTES % (AUTO) 8.4 % (3-13); PLATELET COUNT 233 10^3/uL (150-450); RED BLOOD COUNT 4.76 10^6/uL (3.72-5.28); RED CELL DISTRIBUTION WIDTH 12.9 % (11.5-14.0); SEGMENTED NEUTROPHILS % (AUTO) 65.5 % (42-78); TOTAL CELLS COUNTED % (AUTO) 100 %; WHITE BLOOD COUNT 6.9 10^3/uL (4.0-10.5)
[2020-01-10 11:38] LABS: ALBUMIN 3.8 g/dL (3.5-5.0); ALKALINE PHOSPHATASE 56 U/L (38-126); ANION GAP 6 (5-19); ASPARTATE AMINO TRANSFERASE 33 U/L (14-36); BILIRUBIN,DIRECT 0.3 mg/dL (0.0-0.4); BILIRUBIN,TOTAL 0.5 mg/dL (0.2-1.3); BLOOD UREA NITROGEN 22 mg/dL (7-20); CALCIUM 9.3 mg/dL (8.4-10.2); CARBON DIOXIDE 25 mmol/L (22-30); CHLORIDE 107 mmol/L (98-107); GLUCOSE 91 mg/dL (75-110); POTASSIUM 4.3 mmol/L (3.6-5.0); TOTAL PROTEIN 6.6 g/dL (6.3-8.2)
--- NOTE | 2020-01-10 12:21 | ER Document Report ---
Entered by JAY HARRLEL SCRIBE 01/10/20 1003 Acting as scribe for:GEOVANNI SOSA MD ED Allergic Reaction - General Chief Complaint: Allergic Reaction Stated Complaint: ALLERGIC REACTION - RASH Primary Care Provider: ZACHERY MELVIN MD [Primary Care Provider] - Follow up as needed Mode of Arrival: Ambulatory Information source: Patient Notes: This 49 year old female patient presents to the ED today with complaints of allergic reaction to Enbrel injections that started prior to arrival. Patient states that she started receiving the injections x6 weeks ago for RA and that she typically has a local reaction (erythema) at the injection site. She reports that her last injection was on 01/07 to her right inner thigh and that she presented with her typical reaction of erythema at the site the next day. She states that since then, she developed an itchy, erythematous rash to her bilateral thighs, groin, back, under both breasts, and to her bilateral upper arms. She also reports shortness of breath that started this morning. She states that she took a total of x5 25 mg tablets of Benadryl, last dose around 0715, with minimal relief. She mentions that she called the on-call nurse for Enbrel , who advised the patient to come to the ED for evaluation. Denies any other complaints. TRAVEL OUTSIDE OF THE [place] IN LAST 30 DAYS: No - Related Data Allergies/Adverse Reactions: No Known Allergies Allergy (Verified 06/17/17 11:00) Home Medications: Lisinopril-HCTZ, Metoprolol, Omeprazole, Xanax, Percocet, Celecoxib, Enbrel, Junel Past Medical History - General Information source: Patient, [facility] Records - Social History Smoking Status: Never Smoker Cigarette use (# per day): No Chew tobacco use (# tins/day): No Smoking Education Provided: No Frequency of alcohol use: Occasional Drug Abuse: None Family History: Reviewed & Not Pertinent Patient has suicidal ideation: No Patient has homicidal ideation: No - Past Medical History Cardiac Medical History: Reports: Hx Hypertension Renal/ Medical History: Reports: Hx Ovarian Cysts GI Medical History: Reports: Hx Diverticulitis Musculoskeletal Medical History: Reports Hx Arthritis - RA Psychiatric Medical History: Reports: Hx Anxiety Past Surgical History: Reports: Hx Bowel Surgery - Partial colon and small intestine resection, Hx Hysterectomy - Complete, Hx Tonsillectomy Review of Systems - Review of Systems Constitutional: No symptoms reported EENT: No symptoms reported Cardiovascular: No symptoms reported Respiratory: See HPI, Short of breath Gastrointestinal: No symptoms reported Genitourinary: No symptoms reported Female Genitourinary: No symptoms reported Musculoskeletal: No symptoms reported Skin: See HPI, Rash Hematologic/Lymphatic: No symptoms reported Neurological/Psychological: No symptoms reported -: Yes All other systems reviewed and negative Physical Exam - Vital signs Vitals: Temp Pulse Resp BP Pulse Ox 98.0 F 86 20 160/88 H 99 01/10/20 08:50 01/10/20 08:50 01/10/20 08:50 01/10/20 08:50 01/10/20 08:50 - General General appearance: Alert In distress: None - HEENT Head: Normocephalic, Atraumatic Eyes: Normal Extraocular movements intact: Yes Pupils: PERRL Pharynx: Normal. No: Uvular edema, Potential airway comprom. - Respiratory Respiratory status: No respiratory distress Chest status: Nontender Breath sounds: Normal. No: Stridor, Wheezing Chest palpation: Normal - Cardiovascular Rhythm: Regular Heart sounds: Normal auscultation, S1 appreciated, S2 appreciated Murmur: No Friction rub: No Gallop: None auscultated - Abdominal Inspection: Normal Distension: No distension Bowel sounds: Normal Tenderness: Nontender - Abdomen soft Organomegaly: No organomegaly - Back Back: Normal, Nontender - Extremities General upper extremity: Normal inspection Thigh: Other - Rash noted to right thigh around injection site - Neurological Neuro grossly intact: Yes Orientation: AAOx4 Naresh Coma Scale Eye Opening: Spontaneous Naresh Coma Scale Verbal: Oriented Naresh Coma Scale Motor: Obeys Commands [place] Coma Scale Total: 15 - Psychological Associated symptoms: Normal affect, Normal mood - Skin Skin Temperature: Warm Skin Moisture: Dry Skin Color: Normal Skin irregularity: Rash Location of irregularity: Extremities - Right thigh Course - Re-evaluation Re-evalutation: 01/10/20 12:18 Patient with urticarial rash greatest on her right thigh at this time. Rash is improving after IV Solu-Medrol. Patient had taken a total of 125 mg of Benadryl prior to arrival. There is no airway compromise no wheezing no stridor no respiratory distress no swelling in the posterior oropharynx. - Vital Signs Vital signs: Temp Pulse Resp BP Pulse Ox 98.0 F 86 17 124/71 99 01/10/20 08:50 01/10/20 08:50 01/10/20 12:01 01/10/20 12:01 01/10/20 12:01 - Laboratory Result Diagrams: 01/10/20 11:00 01/10/20 11:00 Laboratory results interpreted by me: 01/10/20 11:00 BUN 22 H ALT 36 H Laboratories essentially unremarkable BUN 22 and ALT 36 the only abnormalities. - Diagnostic Test Radiology reviewed: Image reviewed, Reports reviewed Radiology results interpreted by me: 01/10/20 12:18 Chest X-Ray 01/10/20 10:06 IMPRESSION: NO ACUTE RADIOGRAPHIC FINDING IN THE CHEST. Chest x-ray shows no acute process. Discharge - Discharge Clinical Impression: Allergic reaction caused by a drug Condition: Stable Disposition: HOME, SELF-CARE Additional Instructions: Acute Allergic Reaction to Drugs Your symptoms are due to an allergic reaction. The physician feels that a medication you've taken is responsible. Medication allergy can cause hives, swelling of the hands, feet and face, hoarseness, and difficulty swallowing or breathing. This type of allergy can also be caused by animal dander, foods, infection, or insect bites. Medication can cause allergy even when prior use of this same medication caused no problems. Emergency treatment may include adrenalin and antihistamines. Home treatment includes the following: (1) Stop the suspected medication. (2) Oral antihistamines for the next four to five days (Benadryl, Atarax). (3) Avoid aspirin until the hives completely disappear. (4) Avoid hot baths or showers until the hives are completely gone. Call the doctor if faintness, difficulty swallowing, tightness in the chest or wheezing occurs. Prescriptions: Methylprednisolone [Medrol Dosepack (4 mg/Tab) 21 Tab/Dosepak] 4 mg PO ASDIR PRN #21 tab.ds.pk PRN Reason: Referrals: ZACHERY MELVIN MD [Primary Care Provider] - Follow up as needed I personally performed the services described in the documentation, reviewed and edited the documentation which was dictated to the scribe in my presence, and it accurately records my words and actions.
[2020-01-10] MEDS ORDERED: DIPHENHYDRAMINE HCL 50 MG/ML VIAL IV ONE ×2 (13:13→18:10)
[2020-01-10] MEDS ORDERED: DEXAMETHASONE SOD PHOS INJ 10 MG/1 ML VIAL IV ONE (13:14)
[2020-01-10] MEDS ORDERED: EPINEPHRINE INJ/PF 1 MG/1 ML AMPULE IM STA (13:45)
[2020-01-10] MEDS ORDERED: OXYCODONE-ACETAMINOPHEN 5-325 MG TABLET PO ONE (14:47)
[2020-01-10] MEDS ORDERED: NORMAL SALINE 250 ML IV PRN (14:51)
[2020-01-10] MEDS ORDERED: IPRATROPIUM/ALBUTEROL 0.5-2.5 MG/3 ML AMPUL NEB PRN (18:26)
[2020-01-10] MEDS ORDERED: CALAMINE/ZINC OXIDE LOTION 177 ML/BOTTLE TP PRN ×2 (18:26→22:30)
[2020-01-10] MEDS: 1/2 NORMAL SALINE 1,000 ML IV PRN (19:47)
[2020-01-10] MEDS: DIPHENHYDRAMINE HCL 50 MG/ML VIAL IV PRN (19:47)
--- NOTE | 2020-01-10 20:12 | PDOC H&P ---
History of Present Illness Admission Date/PCP: 01/10/20 15:35 ZACHERY MELVIN MD Patient complains of: hives, pruritus History of Present Illness: RONNIE MOELLER is a 49 year old female, recently diagnosed with rheumatoid arthritis, hypertension, who came in the ED due to pruritus and rashes a few days after receiving etanercept. She was recently diagnosed with rheumatoid arthritis 7 weeks ago and was started on weekly injections of etanercept. According to her she developed rashes around the injection site a few days after receiving at an episode but it would spontaneously resolve, denied any shortness of breath during these episodes. This reaction happened on her first and second doses. Subsequent doses did not produce rashes or pruritus. 2 days prior to admission she received her sixth dose of etanercept. Today she noted rashes on her left leg with associated pruritus. Rash is progressed to her right arm on her back and under her breast which was not seen on previous reactions. Later on the day she developed throat itchiness and shortness of breath. She took 4 tablets of Benadryl 25 mg and came to the ED for further evaluation and management. In the ED her vital signs were stable. She was given Benadryl IV, 1 dose of epinephrine IM, and dexamethasone 125 mg IV and an additional 10 mg. She was about to be discharged when she again complained of itchiness and hives with associated hand swelling. She denied any tongue swelling but admits to mild throat itchiness. Never desaturated. She was admitted to the medical floors for closer observation. Past Medical History Cardiac Medical History: Reports: Hypertension Pulmonary Medical History: Reports: None Denies: Tuberculosis EENT Medical History: Reports: None Neurological Medical History: Reports: None Endocrine Medical History: Reports: None Malignancy Medical History: Reports: None GI Medical History: Reports: None, Diverticulitis Musculoskeltal Medical History: Reports: Arthritis - RA Psychiatric Medical History: Reports: None Traumatic Medical History: Reports: None Hematology: Reports: None Past Surgical History Past Surgical History: Reports: Hysterectomy - Complete, Tonsillectomy Denies: Pacemaker Social History Information Source: Patient Smoking Status: Never Smoker Frequency of Alcohol Use: Occasional Hx Recreational Drug Use: No Drugs: None Hx Prescription Drug Abuse: No Family History Family History: Reviewed & Not Pertinent Parental Family History Reviewed: Yes Children Family History Reviewed: Yes Sibling(s) Family History Reviewed.: Yes Medication/Allergy Home Medications: Alprazolam [Xanax 0.5 mg Tablet] 0.5 mg PO Q12HP PRN 06/17/17 Lisinopril/Hydrochlorothiazide [Lisinopril-Hctz 10-12.5 mg Tab] 1 tab PO DAILY 06/17/17 Norethindrone AC-Eth Estradiol [Norethind-Eth Estrad 1-0.02 mg] 1 tab PO QAM 06/17/17 Omeprazole 40 mg PO BIDACBS 06/17/17 Methylprednisolone [Medrol Dosepack (4 mg/Tab) 21 Tab/Dosepak] 4 mg PO ASDIR PRN #21 tab.ds.pk 01/10/20 Allergies/Adverse Reactions: No Known Allergies Allergy (Verified 06/17/17 11:00) Review of Systems Constitutional: PRESENT: fatigue. ABSENT: fever(s), night sweats Eyes: ABSENT: visual disturbances Nose, Mouth, and Throat: PRESENT: sore throat Cardiovascular: ABSENT: dyspnea on exertion, orthropnea, palpitations Respiratory: PRESENT: dyspnea Gastrointestinal: ABSENT: abdominal pain, dysphagia, heartburn Genitourinary: ABSENT: dysuria Integumentary: PRESENT: erythema, lesions, pruritus Neurological: ABSENT: abnormal movements, confusion, dizziness, numbness Physical Exam Vital Signs: Temp Pulse Resp BP Pulse Ox 98.0 F 86 18 142/77 H 94 01/10/20 08:50 01/10/20 08:50 01/10/20 18:06 01/10/20 18:06 01/10/20 18:06 Intake & Output 01/09/20 01/10/20 01/11/20 06:59 06:59 06:59 Intake Total 1500 Balance 1500 Weight 86 kg General appearance: PRESENT: no acute distress, cooperative Head exam: PRESENT: atraumatic, normocephalic Eye exam: PRESENT: EOMI, PERRLA Ear exam: PRESENT: normal external ear exam Mouth exam: PRESENT: moist, tongue midline - No tongue swelling no lip swelling Neck exam: PRESENT: full ROM Respiratory exam: PRESENT: clear to auscultation cherelle, symmetrical, unlabored. ABSENT: rales, wheezes Cardiovascular exam: PRESENT: RRR, +S1, +S2 Pulses: PRESENT: +2 pedal pulses bilateral GI/Abdominal exam: PRESENT: normal bowel sounds, soft. ABSENT: tenderness Extremities exam: PRESENT: full ROM Musculoskeletal exam: PRESENT: full ROM, tenderness - Right ankle, right knee Neurological exam: PRESENT: alert, awake, oriented to person, oriented to place, oriented to time Psychiatric exam: PRESENT: normal mood Skin exam: PRESENT: normal color Results Laboratory Results: 01/10/20 11:00 01/10/20 11:00 01/10/20 01/10/20 01/10/20 11:00 11:00 15:40 WBC 6.9 RBC 4.76 Hgb 14.3 Hct 41.7 MCV 88 MCH 30.1 MCHC 34.3 RDW 12.9 Plt Count 233 Seg Neutrophils % 65.5 Sodium 138.4 Potassium 4.3 Chloride 107 Carbon Dioxide 25 Anion Gap 6 BUN 22 H Creatinine 0.77 Est GFR ( Amer) > 60 Glucose 91 Calcium 9.3 Total Bilirubin 0.5 AST 33 Alkaline Phosphatase 56 Total Protein 6.6 Albumin 3.8 Blood Type A NEGATIVE Impressions: Chest X-Ray 01/10/20 10:06 IMPRESSION: NO ACUTE RADIOGRAPHIC FINDING IN THE CHEST. Assessment and Plan - Diagnosis (1) Allergic reaction caused by a drug Qualifiers: Encounter type: initial encounter Qualified Code(s): T78.40XA - Allergy, unspecified, initial encounter Is this a current diagnosis for this admission?: Yes Plan: -Recently started with etanercept for rheumatoid arthritis -Admitted due to hives, shortness of breath few days after receiving etanercept -She has not received any other new medications that would provoke an allergic reaction -She developed similar symptoms but milder on her first and second dose of etanercept. She gets them every Saturday - +ve hives on both hands, right arm and back - no tngue swelling, no muffled voice, no wheezing, no desaturation - received epinephrine IM, dexa and benadryl in the ED - continue benadryl, steroids, famotidine - admit for closer monitoring - needs to follow up with Rheum for alternative treatment - monitor for airway compromise (2) Rheumatoid arthritis Qualifiers: Rheumatoid arthritis location: multiple sites Rheumatoid factor presence: unspecified presence Qualified Code(s): M06.9 - Rheumatoid arthritis, unspecified Is this a current diagnosis for this admission?: Yes Plan: -Recently diagnosed 7 weeks ago of rheumatoid arthritis -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 recently started on etanercept -According to the patient she has not noticed any significant improvement with her symptoms since being started on etanercept -follow up with her rheumatology outpatient (3) Pruritus Is this a current diagnosis for this admission?: Yes Plan: - 2/2 to allergic reaction - benadryl Iv and calamine lotion (4) HTN (hypertension) Qualifiers: Hypertension type: essential hypertension Qualified Code(s): I10 - Essential (primary) hypertension Is this a current diagnosis for this admission?: Yes Plan: - continue Lisinopril and HCTZ - Time Time Spent with patient: 25-34 minutes Anticipated Discharge Disposition: Home, Self Care Anticipated Discharge Timeframe: within 48 hours
[2020-01-10] MEDS: HYDROCHLOROTHIAZIDE 12.5 MG TABLET PO SCH (20:27)
[2020-01-10] MEDS: LISINOPRIL 10 MG TABLET PO SCH (20:27)
[2020-01-10] MEDS ORDERED: ALPRAZOLAM 0.5 MG TABLET PO PRN (22:11)
[2020-01-10] MEDS: HEPARIN SOD (PORCINE) 5,000 UNIT/ML 1 ML VIAL SUBCUT SCH (22:32)
[2020-01-10] MEDS: FAMOTIDINE INJ/PF 20 MG/2 ML SDV IV SCH (22:32)
[2020-01-10] MEDS: OXYCODONE-ACETAMINOPHEN 5-325 MG TABLET PO PRN (22:35)
[2020-01-11] MEDS: DIPHENHYDRAMINE HCL 50 MG/ML VIAL IV PRN ×2 (02:25→08:22)
[2020-01-11] MEDS: OXYCODONE-ACETAMINOPHEN 5-325 MG TABLET PO PRN ×2 (03:53→11:18)
[2020-01-11] MEDS ORDERED: HYDROXYZINE PAMOATE 25 MG CAPSULE PO PRN (04:10)
[2020-01-11] MEDS ORDERED: CALAMINE/ZINC OXIDE LOTION 177 ML/BOTTLE ONE (04:10)
[2020-01-11] MEDS ORDERED: HYDROXYZINE PAMOATE 25 MG CAPSULE PO ONE (04:15)
[2020-01-11 05:50] LABS: ABSOLUTE LYMPHOCYTES (AUTO) 0.8 10^3/uL (0.5-4.7); ABSOLUTE MONOCYTES (AUTO) 0.4 10^3/uL (0.1-1.4); ABSOLUTE NEUT (AUTO) 10.6 10^3/uL (1.7-8.2); BASOPHILS % (AUTO) 0.2 % (0-2); HEMATOCRIT 39.8 % (36.0-47.0); HEMOGLOBIN 13.6 g/dL (12.0-15.5); MEAN CORPUSCULAR HEMOGLOBIN 30.4 pg (27.0-33.4); MEAN CORPUSCULAR HGB CONC 34.2 g/dL (32.0-36.0); MEAN CORPUSCULAR VOLUME 89 fl (80-97); MONOCYTES % (AUTO) 3.7 % (3-13); PLATELET COUNT 237 10^3/uL (150-450); RED BLOOD COUNT 4.49 10^6/uL (3.72-5.28); RED CELL DISTRIBUTION WIDTH 13.1 % (11.5-14.0); SEGMENTED NEUTROPHILS % (AUTO) 89.1 % (42-78); TOTAL CELLS COUNTED % (AUTO) 100 %; WHITE BLOOD COUNT 11.9 10^3/uL (4.0-10.5)
[2020-01-11] MEDS: 1/2 NORMAL SALINE 1,000 ML IV PRN (05:54)
[2020-01-11] MEDS: HEPARIN SOD (PORCINE) 5,000 UNIT/ML 1 ML VIAL SUBCUT SCH (05:54)
[2020-01-11 06:18] LABS: ALBUMIN 3.5 g/dL (3.5-5.0); ALKALINE PHOSPHATASE 50 U/L (38-126); ANION GAP 11 (5-19); ASPARTATE AMINO TRANSFERASE 34 U/L (14-36); BILIRUBIN,DIRECT 0.3 mg/dL (0.0-0.4); BILIRUBIN,TOTAL 0.5 mg/dL (0.2-1.3); BLOOD UREA NITROGEN 20 mg/dL (7-20); CALCIUM 8.5 mg/dL (8.4-10.2); CHLORIDE 113 mmol/L (98-107); GLUCOSE 144 mg/dL (75-110); POTASSIUM 3.8 mmol/L (3.6-5.0); TOTAL PROTEIN 6.1 g/dL (6.3-8.2)
[2020-01-11 06:26] LABS: CARBON DIOXIDE 15 mmol/L (22-30)
[2020-01-11] MEDS: HYDROCHLOROTHIAZIDE 12.5 MG TABLET PO SCH (08:21)
[2020-01-11 09:44] VITALS: BP 138/79
[2020-01-11] MEDS ORDERED: METHYLPREDNISOLONE INJ 40 MG/1 ML SDV IV SCH (10:00)
[2020-01-11] MEDS: LISINOPRIL 10 MG TABLET PO SCH (10:14)
[2020-01-11] MEDS: FAMOTIDINE INJ/PF 20 MG/2 ML SDV IV SCH (10:15)
--- NOTE | 2020-01-11 21:27 | PDOC DISCHARGE SUMMARY ---
Impression - Admit/DC Date/PCP Admission Date/Primary Care Provider: 01/10/20 15:35 ZACHERY MELVIN MD Discharge Date: 01/11/20 - Discharge Diagnosis (1) Allergic reaction caused by a drug Is this a current diagnosis for this admission?: Yes (2) Rheumatoid arthritis Is this a current diagnosis for this admission?: Yes (3) Pruritus Is this a current diagnosis for this admission?: Yes (4) HTN (hypertension) Is this a current diagnosis for this admission?: Yes - Additional Information Discharge Diet: As Tolerated Discharge Activity: Activity As Tolerated Referrals: ZACHERY MELVIN MD [Primary Care Provider] - 01/21/20 10:15 am TABITHA JARA MD [ACTIVE STAFF] - (Office stated that they will call patient with appointment time and date. *Referral sent*) Prescriptions: Famotidine [Acid Cloud Operations Engineer] 20 mg PO BID 7 Days #30 tablet Epinephrine [Epinephrine Professional Ems] 1 mg IJ PRN PRN 7 Days #2 kit PRN Reason: Loratadine 10 mg PO BID 7 Days #30 tab.rapdis Home Medications: Alprazolam [Xanax 0.5 mg Tablet] 0.5 mg PO HSP PRN 06/17/17 Norethindrone AC-Eth Estradiol [Norethind-Eth Estrad 1-0.02 mg] 1 tab PO QAM 06/17/17 Omeprazole 40 mg PO DAILY 06/17/17 Oxycodone HCl/Acetaminophen [Percocet 5-325 mg Tablet] 1 tab PO Q6HP PRN 01/10/20 Celecoxib [Celebrex 200 mg Capsule] 200 mg PO DAILY 01/11/20 Epinephrine [Epinephrine Professional Ems] 1 mg IJ PRN PRN 7 Days #2 kit 01/11/20 Famotidine [Acid Cloud Operations Engineer] 20 mg PO BID 7 Days #30 tablet 01/11/20 Fluticasone Propionate [Flonase Nasal Dresser 50 Mcg/Dresser 16 gm] 2 sprays NASL Q12HP PRN 01/11/20 Gabapentin [Neurontin 300 mg Capsule] 300 mg PO QHS 01/11/20 Lisinopril/Hydrochlorothiazide [Lisinopril-Hctz 20-12.5 mg Tab] 1 each PO DAILY 01/11/20 Loratadine 10 mg PO BID 7 Days #30 tab.rapdis 01/11/20 Metoprolol Succinate [Toprol Xl 50 mg Tab.sr] 50 mg PO DAILY 01/11/20 Sucralfate [Carafate 1 gm Tablet] 1 gm PO QAM 01/11/20 History of Present Illiness History of Present Illness: RONNIE MOELLER is a 49 year old female, recently diagnosed with rheumatoid arthritis, hypertension, who came in the ED due to pruritus and rashes a few days after receiving etanercept. She was recently diagnosed with rheumatoid arthritis 7 weeks ago and was started on weekly injections of etanercept. According to her she developed rashes around the injection site a few days after receiving at an episode but it would spontaneously resolve, denied any shortness of breath during these episodes. This reaction happened on her first and second doses. Subsequent doses did not produce rashes or pruritus. 2 days prior to admission she received her sixth dose of etanercept. Today she noted rashes on her left leg with associated pruritus. Rash is progressed to her right arm on her back and under her breast which was not seen on previous reactions. Later on the day she developed throat itchiness and shortness of breath. She took 4 t ablets of Benadryl 25 mg and came to the ED for further evaluation and management. In the ED her vital signs were stable. She was given Benadryl IV, 1 dose of epinephrine IM, and dexamethasone 125 mg IV and an additional 10 mg. She was about to be discharged when she again complained of itchiness and hives with associated hand swelling. She denied any tongue swelling but admits to mild throat itchiness. Never desaturated. She was admitted to the medical floors for closer observation. Hospital Course Hospital Course: Was observed overnight on the floors. She would have episodic flares of the rash but no recurrence of shortness of breath. She received IV Benadryl, IV famotidine, IV fluids, IV steroids. She was discharged the next day with pr escriptions for loratadine, famotidine, short course of prednisone, epinephrine autoinjector. She was advised to follow-up with her rheumatology regarding stopping treatment with etanercept. She was also referred to a local risk adjustment specialist regarding her hives. Physical Exam Vital Signs: Temp Pulse Resp BP Pulse Ox 97.5 F 89 18 138/79 H 100 01/11/20 13:06 01/11/20 13:06 01/11/20 13:06 01/11/20 07:53 01/11/20 13:06 Intake & Output 01/10/20 01/11/20 01/12/20 06:59 06:59 06:59 Intake Total 2500 Balance 2500 Weight 86.7 kg General appearance: PRESENT: no acute distress, mild distress Head exam: PRESENT: atraumatic, normocephalic Eye exam: PRESENT: EOMI, PERRLA Ear exam: PRESENT: normal external ear exam Mouth exam: PRESENT: moist Neck exam: PRESENT: full ROM Respiratory exam: PRESENT: clear to auscultation cherelle, symmetrical, unlabored Cardiovascular exam: PRESENT: RRR, +S1, +S2 Pulses: PRESENT: +2 pedal pulses bilateral GI/Abdominal exam: PRESENT: normal bowel sounds, soft. ABSENT: rebound, tenderness Extremities exam: PRESENT: full ROM, other - Hand swelling Musculoskeletal exam: PRESENT: other - Limited range of motion on her right ankle and right knee secondary to rheumatoid arthritis Neurological exam: PRESENT: alert, awake, oriented to person, oriented to place, oriented to time Psychiatric exam: PRESENT: normal mood Skin exam: PRESENT: normal color Results Laboratory Results: WBC 11.9 10^3/uL (4.0-10.5) H 01/11/20 05:07 RBC 4.49 10^6/uL (3.72-5.28) 01/11/20 05:07 Hgb 13.6 g/dL (12.0-15.5) 01/11/20 05:07 Hct 39.8 % (36.0-47.0) 01/11/20 05:07 MCV 89 fl (80-97) 01/11/20 05:07 MCH 30.4 pg (27.0-33.4) 01/11/20 05:07 MCHC 34.2 g/dL (32.0-36.0) 01/11/20 05:07 RDW 13.1 % (11.5-14.0) 01/11/20 05:07 Plt Count 237 10^3/uL (150-450) 01/11/20 05:07 Lymph % (Auto) 7.0 % (13-45) L 01/11/20 05:07 [place] % (Auto) 3.7 % (3-13) 01/11/20 05:07 Eos % (Auto) 0.0 % (0-6) 01/11/20 05:07 Baso % (Auto) 0.2 % (0-2) 01/11/20 05:07 Absolute Neuts (auto) 10.6 10^3/uL (1.7-8.2) H 01/11/20 05:07 Absolute Lymphs (auto) 0.8 10^3/uL (0.5-4.7) 01/11/20 05:07 Absolute Monos (auto) 0.4 10^3/uL (0.1-1.4) 01/11/20 05:07 Absolute Eos (auto) 0.0 10^3/uL (0.0-0.6) 01/11/20 05:07 Absolute Basos (auto) 0.0 10^3/uL (0.0-0.2) 01/11/20 05:07 Seg Neutrophils % 89.1 % (42-78) H 01/11/20 05:07 Sodium 138.5 mmol/L (137-145) 01/11/20 05:07 Potassium 3.8 mmol/L (3.6-5.0) 01/11/20 05:07 Chloride 113 mmol/L (98-107) H 01/11/20 05:07 Carbon Dioxide 15 mmol/L (22-30) L D 01/11/20 05:07 Anion Gap 11 (5-19) 01/11/20 05:07 BUN 20 mg/dL (7-20) 01/11/20 05:07 Creatinine 0.73 mg/dL (0.52-1.25) 01/11/20 05:07 Est GFR ( Amer) > 60 (>60) 01/11/20 05:07 Est GFR (MDRD) Non-Af > 60 (>60) 01/11/20 05:07 Glucose 144 mg/dL (75-110) H 01/11/20 05:07 Calcium 8.5 mg/dL (8.4-10.2) 01/11/20 05:07 Total Bilirubin 0.5 mg/dL (0.2-1.3) 01/11/20 05:07 Direct Bilirubin 0.3 mg/dL (0.0-0.4) 01/11/20 05:07 Neonat Total Bilirubin Not Reportable 01/11/20 05:07 Neonat Direct Bilirubin Not Reportable 01/11/20 05:07 Neonat Indirect Bili Not Reportable 01/11/20 05:07 AST 34 U/L (14-36) 01/11/20 05:07 ALT 40 U/L (<35) H 01/11/20 05:07 Alkaline Phosphatase 50 U/L (38-126) 01/11/20 05:07 Total Protein 6.1 g/dL (6.3-8.2) L 01/11/20 05:07 Albumin 3.5 g/dL (3.5-5.0) 01/11/20 05:07 Blood Type A NEGATIVE 01/10/20 15:40 Impressions: Chest X-Ray 01/10/20 10:06 IMPRESSION: NO ACUTE RADIOGRAPHIC FINDING IN THE CHEST. Plan Health Concerns: She was concerned for recurrence of her symptoms. She was advised to follow-up with her pediatric nephrologist regarding etanercept treatment, risk adjustment specialist regarding allergic reaction Plan of Treatment: To take Benadryl scheduled, short course prednisone, epinephrine autoinjector in case of severe allergic reaction. Time Spent: Less than 30 Minutes Stroke Is this a Stroke Patient?: No Acute Heart Failure Is this a Heart Failure Patient?: No
== END 2020-01-11 14:44 | disposition home or self-care (01) ==
LOC: ER 08:44 → INTOOBSV 15:35 → EH 15:35 → 3S 19:13
PROVIDERS: ADMIT Internal Medicine; ATTEND Internal Medicine
DX: L50.0 Allergic urticaria (principal); T39.4X5A Adverse effect of antirheumatics, not elsewhere classified, initial encounter; R06.02 Shortness of breath; R53.83 Other fatigue; M06.9 Rheumatoid arthritis, unspecified; I10 Essential (primary) hypertension; F41.9 Anxiety disorder, unspecified; Z79.899 Other long term (current) drug therapy; Z79.1 Long term (current) use of non-steroidal anti-inflammatories (NSAID); Z90.49 Acquired absence of other specified parts of digestive tract
CPT/HCPCS: 99285; 96372; 96361; 96374; 96375; 86900; 86901; 36415 ×2; 85025 ×2; 80053 ×2; 71045; G0378 ×3; J3490; J1644 ×2; J1200 ×2; J0171; J2920; J2930; J7030; S0028 ×2; J1100

== ENCOUNTER 2020-01-12 21:45 | Emergency (ER) | payer BC ==
[2020-01-12 22:13] VITALS: BP 172/77
--- NOTE | 2020-01-12 22:48 | ER Document Report ---
ED Medical Screen (RME) - General Chief Complaint: High Blood Pressure Stated Complaint: BLOOD PRESSURE ISSUES Time Seen by Provider: 01/12/20 22:29 Primary Care Provider: ZACHERY MELVIN MD [Primary Care Provider] - Follow up as needed Mode of Arrival: Ambulatory Information source: Patient Notes: 49-year-old female presented to ED for concern for allergic reactions to Enbrel she states she was here on Saturday for allergic reaction with hives shortness of breath and was admitted overnight and then discharged on Saturday. She states she had another allergic reaction this morning even though she was on the Benadryl Vistaril and prednisone at home. She states while she was in the hospital she was getting IV antihistamines and steroids. She states even while in the hospital she had a bad allergic reaction. She states now she is afraid to be in home when she is had more allergic reactions and today her blood pressure was reading very high on her blood pressure cuff. She states she became very scared and went to the pharmacist and the pharmacist told her that she needed to come back to the emergency room with high blood pressure was part of the allergic reaction to the Enbrel. Manually blood pressure was 142/82 on the left 152/84 on the right during my assessment. I did speak with Dr. Mora and she stated they would see her in the back but there was no need to start labs and x- ray upfront. I have greeted and performed a rapid initial assessment of this patient. A comprehensive ED assessment and evaluation of the patient, analysis of test results and completion of medical decision making process will be conducted by an additional ED providers. TRAVEL OUTSIDE OF THE [place] IN LAST 30 DAYS: No - Related Data Allergies/Adverse Reactions: etanercept [From Enbrel] Allergy (Severe, Verified 01/11/20 08:43) Hives Past Medical History - Past Medical History Cardiac Medical History: Reports: Hx Hypertension Pulmonary Medical History: Denies: Hx Tuberculosis Renal/ Medical History: Reports: Hx Ovarian Cysts. Denies: Hx Peritoneal Dialysis GI Medical History: Reports: Hx Diverticulitis Musculoskeltal Medical History: Reports Hx Arthritis - RA Psychiatric Medical History: Reports: Hx Anxiety Denies: Hx Depression Past Surgical History: Reports: Hx Bowel Surgery - Partial colon and small intestine resection, Hx Hysterectomy - Complete, Hx Tonsillectomy. Denies: Hx Pacemaker Physical Exam - Vital signs Vitals: Temp Pulse Resp BP Pulse Ox 98.2 F 88 20 172/77 H 97 01/12/20 22:11 01/12/20 22:11 01/12/20 22:11 01/12/20 22:11 01/12/20 22:11 Course - Vital Signs Vital signs: Temp Pulse Resp BP Pulse Ox 98.2 F 88 20 172/77 H 97 01/12/20 22:11 01/12/20 22:11 01/12/20 22:11 01/12/20 22:11 01/12/20 22:11 Doctor's Discharge - Discharge Referrals: ZACHERY MELVIN MD [Primary Care Provider] - Follow up as needed
== END 2020-01-13 04:35 | disposition left against medical advice (07) ==
LOC: ER 21:45
DX: I10 Essential (primary) hypertension (principal)
CPT/HCPCS: 99281

== ENCOUNTER → 2020-02-11 | Outpatient (CLI) | payer BC | LOC: OD 11:06 | PROVIDERS: ATTEND Allergy & Immunology | DX: J30.89 Other allergic rhinitis (principal); L50.9 Urticaria, unspecified; R23.2 Flushing | CPT/HCPCS: 36415; 82785; 83520; 86003 ==